=== PATIENT | female | born 1940 | race Caucasian/White ===

== ENCOUNTER 2019-12-28 15:14 | Observation (INO) | payer OTHER ==
[2019-12-28 16:57] LABS: Absolute Lymphocytes (CBC) 2.3 K/uL (0.7-4.9); Basophils % 0.7 % (0-1.3); Hematocrit 37.2 % (36.0-45.0); MPV 8.8 fL (7.6-11.3); RBC Red Blood Cell Count 3.83 M/uL (3.86-4.86)
[2019-12-28 17:00] LABS: Protime INR 0.98
[2019-12-28 17:11] LABS: ALT/SGPT 13 U/L (12-78); AST/SGOT 12 U/L (15-37); Albumin 3.6 g/dL (3.4-5.0); Alkaline Phosphatase 64 U/L (45-117); BUN Blood Urea Nitrogen 12 mg/dL (7-18); Bicarbonate 29 mmol/L (21-32); Bilirubin Direct 0.1 mg/dL (0-0.2); Bilirubin Total 0.4 mg/dL (0.2-1.0); Glucose Level 99 mg/dL (74-106); Magnesium 2.5 mg/dL (1.8-2.4); NT PRO-BNP 178 pg/mL (<450); Potassium 3.8 mmol/L (3.5-5.1); Protein, Total 7.1 g/dL (6.4-8.2); Sodium Level 137 mmol/L (136-145); Troponin (Emerg Dept Use Only) < 0.02 ng/mL (0.0-0.045)
--- NOTE | 2019-12-28 17:30 | RAD REPORT ---
EXAM DESCRIPTION: Rick[place] Single View12/28/2019 5:19 pm CLINICAL HISTORY: Chest pain COMPARISON: none FINDINGS: The lungs appear clear of acute infiltrate. The heart is normal size. Aorta is tortuous/e ctatic IMPRESSION: No acute abnormalities displayed
[2019-12-28] MEDS ORDERED: ASPIRIN 81 MG CHEWABLE TABLET ONE (17:44)
--- NOTE | 2019-12-28 17:45 | ER ---
Nurse's Notes [facility] Name: Elida Yañez Age: 79 yrs Sex: Female : 1940 Arrival Date: 12/28/2019 Time: 15:16 Bed 16 Private MD: Shana Yun C Diagnosis: Chest pain, unspecified;Streptococcal pharyngitis Presentation: 12/27 15:26 Chief complaint: Patient states: Slight cough, low grade fever, and left sided chest ll1 pain since last night. Coronavirus screen: Surgical mask placed on patient. Patient moved to private room, placed in contact and droplet isolation with eye protection until further assessment. Patient reports a cough. Patient denies shortness of breath or difficulty breathing. Patient denies measured and/or subjective temperature greater than 100.4F prior to today's visit. Patient denies travel on a cruise ship or to a country the [facility] currently lists as an affected area. Patient denies contact with known and/or suspected case of COVID-19. Fever 100.1 at home. Ebola Screen: Patient denies travel to an Ebola-affected area in the 21 days before illness onset. Initial Sepsis Screen: Does the patient meet any 2 criteria? No. Patient's initial sepsis screen is negative. Does the patient have a suspected source of infection? No. Patient's initial sepsis screen is negative. Risk Assessment: Do you want to hurt yourself or someone else? Patient reports no desire to harm self or others. Onset of symptoms was December 27, 2019. 15:26 Method Of Arrival: Ambulatory ll1 15:26 Acuity: ELIAS 3 ll1 Historical: - Allergies: 15:29 Codeine; ll1 15:29 Primidone; ll1 - PMHx: 15:29 Hypothyroidism; High Cholesterol; Arthritis; ll1 - Social history:: Smoking status: Patient denies any tobacco usage or history of. Patient/guardian denies using alcohol, street drugs, tobacco products. Screenin:23 Abuse screen: Denies threats or abuse. Nutritional screening: No deficits noted. Tuberculosis screening: No symptoms or risk factors identified. Fall Risk None identified. Assessment: 15:50 General: Appears in no apparent distress. Behavior is calm, cooperative. Pain: Complains of pain in chest Pain does not radiate. Pain currently is 5 out of 10 on a pain scale. Quality of pain is described as aching, Pain began 2-3 days ago. Neuro: Level of Consciousness is awake, alert, Oriented to person, place, time, situation. Cardiovascular: Heart tones S1 S2 present Capillary refill < 3 seconds Patient's skin is warm and dry. Pulses are palpable in right radial artery and left radial artery Chest pain is described as mild, quality is is located in left began 1 day ago. Respiratory: Airway is patent Respiratory effort is even, unlabored, Respiratory pattern is regular, symmetrical, Breath sounds are clear. GI: No signs and/or symptoms were reported involving the gastrointestinal system. : No signs and/or symptoms were reported regarding the genitourinary system. EENT: No signs and/or symptoms were reported regarding the EENT system. Derm: No signs and/or symptoms reported regarding the dermatologic system. 19:30 Reassessment: Attempted to call report to 4th floor , was asked to call back in 30 mins. 19:44 Reassessment: outside lab notified pt to be admitted, spoke with Ramiro. 19:45 Reassessment: Pt given sandwich and chips at this time. 20:26 Reassessment: Attempted to call report to 4th floor, Nurse states that she is still ah busy and will call back. 20:36 Reassessment: Dr Yun in to see Pt at this time. Vital Signs: 15:26 BP 145 / 80; Pulse 81; Resp 18; Temp 99.1; Pulse Ox 98% ; Pain 4/10; ll1 16:55 BP 154 / 88; Pulse 73; Resp 16; Pulse Ox 97% ; ah 17:30 BP 140 / 79; Pulse 76; Resp 16; Pulse Ox 98% ; ah 18:00 BP 154 / 87; Pulse 72; Resp 20; Temp 98.8; Pulse Ox 98% ; ah 18:30 BP 150 / 77; Pulse 73; Resp 21; Pulse Ox 99% ; ah 19:00 BP 128 / 76; Pulse 72; Resp 17; Pulse Ox 96% ; ah 20:00 BP 144 / 78; Pulse 79; Resp 18; Pulse Ox 98% ; ah ED Course: 15:16 Patient arrived in ED. ag5 15:17 Shana Yun MD is Private Physician. ag5 15:28 Triage completed. ll1 15:29 Nick Tadeo PA is PHCP. [facility] 15:29 Lamont Tatum MD is Attending Physician. [facility] 15:29 Arm band placed on Patient placed in an exam room, on a stretcher. ll1 15:33 Cathi Yañez, RN is Primary Nurse. 16:22 One-on-one care X 45 minutes. 16:30 Initial lab(s) drawn, First set of blood cultures drawn EKG done, Flu and/or RSV swab ah sent to lab. Strep swab sent to lab. Inserted saline lock: 20 gauge in left antecubital area, using aseptic technique. 17:20 XRAY Chest (1 view) In Process Unspecified. EDMS 17:44 Shana Yun MD is Hospitalizing Provider. [facility] 19:24 Patient has correct armband on for positive identification. Placed in gown. Bed in low ah position. Call light in reach. Side rails up X2. electronic device monitor on. Pulse ox on. NIBP on. 20:30 No provider procedures requiring assistance completed. Patient admitted, IV remains in ah place. 20:37 Patient maintains SpO2 saturation greater than 95% on room air. Administered Medications: 17:45 Drug: Aspirin Chewable Tablet 324 mg Route: PO; 18:45 Follow up: Response: No adverse reaction 19:00 Drug: Amoxicillin 500 mg Route: PO; 20:00 Follow up: Response: No adverse reaction Outcome: 17:45 Decision to Hospitalize by Provider. [facility] 20:37 Admitted to Tele accompanied by tech, via stretcher, room 415, with chart. 20:37 Condition: stable 20:37 Instructed on the need for admit. 21:34 Patient left the ED. sg Signatures: Dispatcher [employer] EDMS Howie Drake, RN RN Nick Hoffman PA PA jmm Gaskin, Ajare ag5 Cathi Yañez RN RN Jonathan García RN RN ll1
--- NOTE | 2019-12-28 17:45 | EDPHYS ---
Physician Documentation [facility] Name: Elida Yañez Age: 79 yrs Sex: Female : 1940 Arrival Date: 12/28/2019 Time: 15:16 Bed 16 Private MD: Shana Yun C ED Physician Lamont Tatum HPI: 12/27 15:50 This 79 yrs old Female presents to ER via Ambulatory with complaints of Chest jmm Pain, Fever. 15:50 Onset: The symptoms/episode began/occurred last night. Associated signs and symptoms: jmm Pertinent positives: chest pain, cough, fever. This is an 79 year old female with a history of HLP, hypothyroidism that presents to the ED with complaints of chest pain beginning last night along with body aches and low grade fever. Patient states she has had an ongoing chronic cough. Denies recent travel. Denies infectious exposure. . Historical: - Allergies: 15:29 Codeine; ll1 15:29 Primidone; ll1 - PMHx: 15:29 Hypothyroidism; High Cholesterol; Arthritis; ll1 - Social history:: Smoking status: Patient denies any tobacco usage or history of. Patient/guardian denies using alcohol, street drugs, tobacco products. ROS: 15:50 Abdomen/GI: Negative for abdominal pain, nausea, vomiting, diarrhea, and constipation, jmm Back: Negative for injury and pain, Neuro: Negative for headache, weakness, numbness, tingling, and seizure. 15:50 Constitutional: Positive for body aches, chills, fever. 15:50 Cardiovascular: Positive for chest pain. 15:50 Respiratory: Positive for cough. 15:50 All other systems are negative. Exam: 15:50 Constitutional: This is a well developed, well nourished patient who is awake, alert, jmm and in no acute distress. Head/Face: atraumatic. Eyes: EOMI, no conjunctival erythema appreciated ENT: Moist Mucus Membranes Neck: Trachea midline, Supple Chest/axilla: Normal chest wall appearance and motion. 15:50 Back: Normal ROM Skin: General appearance color normal MS/ Extremity: Moves all extremities, no obvious deformities appreciated, no edema noted to the lower extremities Neuro: Awake and alert, normal gait Psych: Behavior is normal, Mood is normal, Patient is cooperative and pleasant 15:50 Cardiovascular: Rate: normal, Rhythm: regular, Pulses: no pulse deficits are appreciated. 15:50 Respiratory: the patient does not display signs of respiratory distress, Respirations: normal, Breath sounds: are clear throughout. 15:50 Abdomen/GI: Inspection: abdomen appears normal, Bowel sounds: normal, Palpation: abdomen is soft and non-tender, in all quadrants. Vital Signs: 15:26 BP 145 / 80; Pulse 81; Resp 18; Temp 99.1; Pulse Ox 98% ; Pain 4/10; ll1 16:55 BP 154 / 88; Pulse 73; Resp 16; Pulse Ox 97% ; ah 17:30 BP 140 / 79; Pulse 76; Resp 16; Pulse Ox 98% ; ah 18:00 BP 154 / 87; Pulse 72; Resp 20; Temp 98.8; Pulse Ox 98% ; ah 18:30 BP 150 / 77; Pulse 73; Resp 21; Pulse Ox 99% ; ah 19:00 BP 128 / 76; Pulse 72; Resp 17; Pulse Ox 96% ; ah 20:00 BP 144 / 78; Pulse 79; Resp 18; Pulse Ox 98% ; ah MDM: 15:47 Patient medically screened. [facility] 17:43 Data reviewed: vital signs, nurses notes. Counseling: I had a detailed discussion with [facility] the patient and/or guardian regarding: the historical points, exam findings, and any diagnostic results supporting the discharge/admit diagnosis, lab results, radiology results, the need for further work-up and treatment in the hospital. ED course: I discussed the patient with Dr. Yun whom accepted the patient for admission. . 12/27 15:30 Order name: Basic Metabolic Panel; Complete Time: 17:15 [facility] 12/27 15:30 Order name: CBC with Diff; Complete Time: 17:15 [facility] 12/27 15:30 Order name: LFT's; Complete Time: 17:15 [facility] 12/27 15:30 Order name: Magnesium; Complete Time: 17:15 [facility] 12/27 15:30 Order name: NT PRO-BNP; Complete Time: 17:15 [facility] 12/27 15:30 Order name: PT-INR; Complete Time: 17:35 [facility] 12/27 15:30 Order name: Troponin (emerg Dept Use Only); Complete Time: 17:15 [facility] 12/27 15:30 Order name: Procalcitonin; Complete Time: 17:39 [facility] 12/27 15:30 Order name: Lactate; Complete Time: 17:15 [facility] 12/27 15:30 Order name: Blood Culture Adult (2) [facility] 12/27 15:47 Order name: Flu; Complete Time: 17:35 [facility] 12/27 15:47 Order name: Strep; Complete Time: 17:35 [facility] 12/27 15:47 Order name: COVID-19; Complete Time: 20:41 [facility] 12/27 15:48 Order name: TSH; Complete Time: 17:35 [facility] 12/27 15:30 Order name: XRAY Chest (1 view); Complete Time: 17:35 [facility] 12/27 15:30 Order name: EKG; Complete Time: 15:30 [facility] 12/27 18:33 Order name: Basic Metabolic Panel EDMS 12/27 18:33 Order name: Basic Metabolic Panel EDMS 12/27 18:33 Order name: Troponin I EDMS 12/27 18:33 Order name: Troponin I EDMS 12/27 18:33 Order name: Troponin I EDMS 12/27 18:34 Order name: Consistent Carb (ADA) 1800 Rc EDMS 12/27 18:34 Order name: EKG Electrocardiogram EDMS 12/27 18:34 Order name: EKG Electrocardiogram EDMS 12/27 18:34 Order name: EKG Electrocardiogram EDMS 12/27 18:34 Order name: EKG Electrocardiogram EDMS / 18:34 Order name: CBC with Automated Diff EDMS / 18:35 Order name: CBC with Automated Diff EDMS 05/ 15:30 Order name: Cardiac monitoring; Complete Time: 17:01 [facility] 12/27 15:30 Order name: EKG - Nurse/Tech; Complete Time: 17:02 [facility] 12/27 15:30 Order name: IV Saline Lock; Complete Time: 17:13 [facility] 12/27 15:30 Order name: Labs collected and sent; Complete Time: 17:14 [facility] 12/27 15:30 Order name: O2 Per Protocol; Complete Time: 17:14 [facility] 12/27 15:30 Order name: O2 Sat Monitoring; Complete Time: 17:14 [facility] 12/27 18:34 Order name: EKG Electrocardiogram EDMS Administered Medications: 17:45 Drug: Aspirin Chewable Tablet 324 mg Route: PO; ah 18:45 Follow up: Response: No adverse reaction 19:00 Drug: Amoxicillin 500 mg Route: PO; 20:00 Follow up: Response: No adverse reaction Disposition: 12/28/19 17:45 Hospitalization ordered by Shana Yun for Observation. Preliminary diagnosis are Chest pain, unspecified, Streptococcal pharyngitis. - Bed requested for Telemetry/MedSurg (observation). - Status is Observation. sg - Condition is Stable. - Problem is new. - Symptoms are unchanged. Addendum: 01/07/2020 12:36 Co-signature as Attending Physician, Lamont Tatum MD Available for consultation p s1 during the ED encounter. . Signatures: Dispatcher [employer] EDMS Bonita Scott Steven, RN RN Nick Hoffman PA PA jmm Singer, Phillip, MD MD [facility] Cathi Yañez, RN RN Jonathan Wren RN RN ll1 Corrections: (The following items were deleted from the chart) 12/27 18:45 17:45 Hospitalization Ordered by A Court TRIVEDI for Observation. Preliminary diagnosis is bd Chest pain, unspecified; Streptococcal pharyngitis. Bed requested for Telemetry/MedSurg (observation). Status is Observation. Condition is Stable. Problem is new. Symptoms are unchanged. [facility] 21:34 18:45 12/28/2019 17:45 Hospitalization Ordered by A Court TRIVEDI for Observation. sg Preliminary diagnosis is Chest pain, unspecified; Streptococcal pharyngitis. Bed requested for Telemetry/MedSurg (observation). Status is Observation. Condition is Stable. Problem is new. Symptoms are unchanged. bd
[2019-12-28] MEDS ORDERED: ONDANSETRON 4 MG/2 ML VIAL IV PRN (18:30)
[2019-12-28] MEDS ORDERED: ACETAMINOPHEN 500 MG TAB PO PRN (18:30)
[2019-12-28] MEDS: AMOXICILLIN TRIHYDR 250 MG CAP PO SCH ×2 (21:00→22:10)
[2019-12-28] MEDS ORDERED: NAPROXEN 250 MG TAB PO ONE (23:16)
[2019-12-28 23:56] VITALS: BMI 28.5
--- NOTE | 2019-12-29 01:10 | HP ---
Date of Admission: 12/28/2019 Chief Complaint: Chest pain, fever, chills. History Of Present Illness: This is an 79-year-old very pleasant female patient who came into emergency room today with complaints of left-sided chest pain in the area below her left breast that started last night and pain has been continuous, but it increases and decreases in severity on its own. Pain does not travel anywhere. No aggravating or relieving factor. No other associated symptoms like diaphoresis or shortness of breath. She does have some low-grade fever with that and chills. Denies any expectoration. No vomiting. No diarrhea. After she came into the emergency room, she was evaluated and she will be admitted to the hospital with these complaints. COVID-19 test was done. Patient's streptococcal screen came back positive. Influenza A and B negative. I saw her in the emergency room. Allergies: CODEINE CAUSING HEADACHE AND PRIMIDONE CAUSING RASH. Medications: List reviewed. At home, prescription medication includes Lexapro, levothyroxine, propranolol, simvastatin, and trazodone. She also takes Tylenol, calcium, and vitamin D supplement. Review of Systems: Constitutional: As mentioned above. Cardiovascular: As mentioned above. All other systems reviewed and negative. Past Medical History: Benign essential tremor, hypothyroidism, hyperlipidemia, osteoarthritis at multiple sites, depression, insomnia, osteopenia. Past Surgical History: Cataract surgery. Family History: Father , had COPD. Mother and had osteoarthritis. Social History: Negative for smoking or alcohol use. Physical Examination: Vital Signs: Blood pressure when she came into ER 145/80, pulse 81, respiratory rate 18, temperature 99.1, oxygen saturation 98%. General: Awake, alert, oriented, not in distress. HEENT: Head atraumatic, normocephalic. Conjunctivae nonerythematous. Sclerae white. Mouth, no thrush or edema noted. Ears/Nose, no mass, lesion, discharge noted. Neck: Supple. No JVD, lymph nodes, bruit, thyromegaly noted. Lungs: Bilateral good equal air entry. Clear to auscultation. No rhonchi. No rales. Heart: Normal heart sounds, no murmur or gallop. Abdomen: Soft, bowel sounds normal. No guarding, rigidity, tenderness, mass, hepatosplenomegaly, distention, or bruit noted. Extremities: No leg edema. No calf tenderness. Skin: No rash, ulcer, cellulitis. Lymphatics: No lymph node enlargement in neck, supraclavicular, infraclavicular region. Neuro: No focal neurological deficit. Chest: Unremarkable. External Genitalia: Deferred. Rectal: Deferred. Laboratory Data: White count 9.4, hemoglobin 12.4, platelets 240. Sodium 137, potassium 3.8, chloride 104, bicarb 29, BUN 12, creatinine 0.94, glucose 99, magnesium 2.5. Liver function tests unremarkable. Troponin less than 0.02. Procalcitonin less than 0.05. TSH 0.964. Lactic acid 0.7. Chest x-ray: No acute cardiopulmonary changes. EKG: Normal sinus rhythm. No acute ST-T changes. COVID-19 test done, result pending. Influenza A and B test negative. Streptococcal screen positive. Impression: 1. Chest pain, rule out myocardial infarction. 2. Rule out coronavirus disease 2019. 3. Acute streptococcal pharyngitis. 4. Benign essential tremor. 5. Hypothyroidism. 6. Hyperlipidemia. 7. Osteoarthritis in multiple sites. 8. Depression. 9. Insomnia. Plan: Admit patient to hospital for further evaluation and management of this problem. Patient is appropriate for observation. We will keep her in the hospital overnight. Rule out COVID-19. Hopefully, result will be available by tomorrow. We will get serial cardiac enzymes. I will see her tomorrow for followup. Depending on her clinical condition, we will decide if we can possibly discharge her to go home. If she goes home before we receive her COVID-19 test results, then she should keep herself in isolation at home until negative result comes back and she was made aware of that. Her chest pain appears to be atypical in nature at this point. We will give antibiotic, amoxicillin for her streptococcal infection. JULIA/MODL Voice ID: [id number] MTDShun
[2019-12-29 03:30] LABS: Absolute Lymphocytes (CBC) 2.6 K/uL (0.7-4.9); Basophils % 0.6 % (0-1.3); Hematocrit 32.5 % (36.0-45.0); Lymphocytes % 31.3 % (15.3-44.8); MPV 8.9 fL (7.6-11.3); RBC Red Blood Cell Count 3.31 M/uL (3.86-4.86)
[2019-12-29] MEDS ORDERED: LEVOTHYROXINE SOD 0.05 MG TABLET PO SCH (06:30)
[2019-12-29] MEDS: AMOXICILLIN TRIHYDR 250 MG CAP PO SCH (08:09)
[2019-12-29 08:17] VITALS: BP 136/68; TEMP 96.9
[2019-12-29 08:29] VITALS: O2SAT 100
[2019-12-29] MEDS ORDERED: ASPIRIN EC 81 MG TAB PO SCH (09:00)
[2019-12-29] MEDS ORDERED: NAPROXEN 250 MG TAB PO SCH (09:00)
[2019-12-29] MEDS ORDERED: ESCITALOPRAM 20 MG TAB PO SCH (09:00)
--- NOTE | 2019-12-29 16:19 | EKG ---
Test Date: 2019-12-28 Test Time: 16:51:32 Seat Cover Installer: BHARATI MEASUREMENT RESULTS: Intervals: Rate: 76 OR: 194 QRSD: 120 QT: 420 QTc: 472 [place]: P: 45 OR: 194 QRS: -25 T: 96 INTERPRETIVE STATEMENTS: Normal sinus rhythm Incomplete left bundle branch block ST & T wave abnormality, consider lateral ischemia Abnormal ECG No previous ECG available for comparison Electronically Signed On 12-29-19 16:18:05 CDT by Pa Medina
== END 2019-12-29 10:30 | disposition home or self-care (01) ==
LOC: ER 15:14 → ERHOLD 18:29 → 4TH 21:13
PROVIDERS: ADMIT Internal Medicine; ATTEND Internal Medicine
DX: R07.9 Chest pain, unspecified (principal); Z20.828 Contact with and (suspected) exposure to other viral communicable diseases; J02.0 Streptococcal pharyngitis; R50.9 Fever, unspecified; E03.9 Hypothyroidism, unspecified; E78.5 Hyperlipidemia, unspecified; M15.9 Polyosteoarthritis, unspecified; F32.9 Major depressive disorder, single episode, unspecified; G47.00 Insomnia, unspecified; M85.80 Other specified disorders of bone density and structure, unspecified site; G25.0 Essential tremor; Z88.6 Allergy status to analgesic agent; Z88.8 Allergy status to other drugs, medicaments and biological substances
CPT/HCPCS: 93005; 87040 ×2; 85025 ×2; 80048 ×2; 36415; 83735; 85610; 80076; 87081; 83605; 84443; 84484 ×3; 84145; 83880; 87804 ×2; 71045; 99285; U0002; G0378 ×3

== ENCOUNTER 2021-01-26 13:07 | Inpatient (IN) | payer OTHER ==
--- OUTSIDE RECORDS SUMMARY | 2021-01-26 15:07 | XMS REPORT | Continuity of Care Document ---
:1940 Author Organization [facility] t Address [address] [place] [address] Dr. Crabtree. [address] [place] [address] Care Team Providers Name Role Phone Hemalatha Billings Attending Clinician Problems This patient has no known problems. Allergies, Adverse Reactions, Alerts This patient has no known allergies or adverse reactions. Medications This patient has no known medications. Procedures This patient has no known procedures. Encounters Start End Encounter Admission Attending Care Care Encounter Source Date/Time Date/Time Type Type Clinicians Facility Department ID 2020-02-04 2020-02-04 Emergency Cassandra Gomes [facility] 1.2. [id number] 20:30:13 22:15:00 Cassandra Gomes [id number] [place] [id number] [place] [phone] [id number] Results This patient has no known results.
[2021-01-26] MEDS ORDERED: ACETAMINOPHEN 500 MG TAB PO PRN (16:10)
[2021-01-26] MEDS ORDERED: BISACODYL 10 MG RECTAL SUPP PR PRN (16:12)
[2021-01-26] MEDS ORDERED: DOCUSATE NA/SENNA CONC 1 TAB PO PRN (16:13)
[2021-01-26] MEDS ORDERED: methocarbamoL 500 MG TAB PO PRN (16:19)
[2021-01-26] MEDS: POLYETHYL GLY 3350 17 GM/DOSE PO SCH (20:39)
[2021-01-26] MEDS: NAPROXEN 250 MG TAB PO SCH (20:39)
[2021-01-26] MEDS: ATORVASTATIN 10 MG TAB PO SCH (20:40)
[2021-01-26] MEDS: levETIRAcetam 500 MG TAB PO SCH (20:40)
[2021-01-26] MEDS: MEMANTINE HCL 10 MG TABLET PO SCH (20:40)
[2021-01-26] MEDS: GABAPENTIN 300 MG CAP PO SCH (20:40)
[2021-01-26] MEDS ORDERED: ATORVASTATIN 10 MG TAB PO SCH (21:00)
[2021-01-27 05:58] LABS: Urine Appearance CLEAR (Clear); Urine Bilirubin NEGATIVE (Negative); Urine Blood NEGATIVE (Negative); Urine Color YELLOW (Yellow); Urine Glucose NEGATIVE (Negative); Urine Protein NEGATIVE (Negative); Urine Specific Gravity 1.015 (1.005-1.030); Urine pH 5.5 (5.0-7.0)
[2021-01-27 05:59] LABS: Urine Microscopic Reflex NO UMIC
[2021-01-27 06:37] LABS: Absolute Lymphocytes (CBC) 1.2 K/uL (0.7-4.9); Basophils % 0.9 % (0-1.3); Hematocrit 27.7 % (36.0-45.0); Lymphocytes % 21.4 % (15.3-44.8); MPV 8.6 fL (7.6-11.3); RBC Red Blood Cell Count 2.81 M/uL (3.86-4.86)
[2021-01-27] MEDS: LEVOTHYROXINE SOD 0.05 MG TABLET PO SCH (06:48)
[2021-01-27 06:57] LABS: Albumin 2.9 g/dL (3.4-5.0); Magnesium 2.4 mg/dL (1.8-2.4); Prealbumin 15.1 mg/dL (20-40)
[2021-01-27] MEDS ORDERED: ENOXAPARIN 30 MG/0.3 ML SQ SCH (08:00)
[2021-01-27] MEDS ORDERED: ASPIRIN 325 MG TAB PO SCH (08:00)
[2021-01-27] MEDS: LIDOCAINE 4% PATCH TOP SCH ×2 (08:00→08:43)
[2021-01-27] MEDS: POLYETHYL GLY 3350 17 GM/DOSE PO SCH ×2 (08:00→20:00)
[2021-01-27] MEDS: ASPIRIN 81 MG CHEWABLE TABLET PO SCH (08:44)
[2021-01-27] MEDS: NAPROXEN 250 MG TAB PO SCH (08:44)
[2021-01-27] MEDS: VITAMIN D 5,000 UNIT CAP PO SCH (08:44)
[2021-01-27] MEDS: GABAPENTIN 300 MG CAP PO SCH ×3 (08:44→21:02)
[2021-01-27] MEDS: levETIRAcetam 500 MG TAB PO SCH ×2 (08:44→21:02)
[2021-01-27] MEDS: ESCITALOPRAM 20 MG TAB PO SCH (08:44)
--- NOTE | 2021-01-27 12:50 | HP ---
Date of Admission: 01/27/2021 Chief Complaint: Leg pain. History Of Present Illness: This is an 80-year-old very pleasant female patient, who fell down at [facility]. The patient says that while she walking on a hard floor, she felt like her foot kind of got stuck on the floor and she lost her balance and fell down. The patient was life flighted to [place] to [facility] and after several days in the hospital, she was sent to our rehab floor yesterday for inpatient rehab care. The patient had surgery for left patellar fracture. I have reviewed the available record from [place] and her workup in [place] revealed that the patient had a small thin right-sided parafalcine subdural hematoma and it did not require any surgical intervention. She also was diagnosed as having fracture of the sinus and nasal bones and she had some teeth extraction done in [place]. She also was diagnosed as having left comminuted patella fracture for which she had surgery and she had a mild compression fracture approximately 10% involving T1 and there was osteophyte fracture at the base of T1 and longitudinal ligament injury of C7-T1. The patient has a hard cervical collar in place and brace over left lower extremity. She denies any constipation problem. Medications: List reviewed. Review of Systems: Musculoskeletal: As mentioned above. All other systems reviewed and negative. Allergies: SHE IS ALLERGIC TO CODEINE CAUSING HEADACHE AND PRIMIDONE CAUSING RASH. Past Medical History: Benign essential tremor, hypothyroidism, hyperlipidemia, osteoarthritis at multiple sites, depression, insomnia, and osteopenia. Past Surgical History: Cataract surgery and recent surgery for left patellar fracture. Family History: Father , had COPD. Mother , had osteoarthritis. Social History: Negative for smoking and alcohol use. Physical Examination: Vital Signs: Last vital signs; temperature 98.3, pulse 105, respiratory rate 16, blood pressure 115/58, and oxygen saturation 96%. Height 5 feet 7 inches, weight 188 pounds. General: Awake, alert, oriented, not in distress. HEENT: The patient has some contusion around her lips. Neck: The patient has a hard cervical collar in place. Lungs: Bilateral good equal air entry. Clear to auscultation. No rhonchi. No rales. Heart: Normal heart sounds, no murmur or gallop. Abdomen: Soft, bowel sounds normal. No guarding, rigidity, tenderness, mass, hepatosplenomegaly, distention, or bruit noted. Extremities: The patient has a brace present over left lower extremity and has grade 1 edema of left lower extremity. Skin: No rash, ulcer, cellulitis. Lymphatics: No lymph node enlargement in neck, supraclavicular, infraclavicular region. Neuro: No focal neurological deficit. Chest: Unremarkable. External Genitalia: Deferred. Rectal: Deferred. Laboratory Data: Urinalysis was normal. COVID-19 test negative. White count 5.7, hemoglobin 9.6, platelets 203. Sodium 141, potassium 4, chloride 107, bicarb 30, BUN 24, creatinine 0.93, glucose 91. Magnesium 2.4, albumin level 2.9, pre-albumin level 15.1. Impression: 1. Left patellar fracture, status post surgery. 2. Compression fracture, T1 spine. 3. Longitudinal ligament injury, C7-T1. 4. Fracture of nasal bone and maxillary sinus. 5. Anemia. 6. Malnutrition. 7. Benign essential tremor. 8. Hypothyroidism. 9. Hyperlipidemia. 10. Leg edema. 11. Osteoarthritis at multiple sites. 12. Depression. 13. Insomnia. Plan: We will go ahead and admit the patient to rehab floor for further inpatient rehab therapy. Dr. Beckwith from rehab floor will be consulted to manage the patient's therapy part. We will continue current medical management including her DVT prophylaxis. Currently, she is on Lovenox, we will continue that. We will use stool softener and iron supplement per order. Details and plan of treatment discussed with her and I will see her tomorrow for follow up visit. JULIA/YONG Voice ID: [id number] MTDD
[2021-01-27] MEDS: CHLORHEXIDINE 0.12% 473ML BOT MM SCH ×2 (14:36→21:02)
--- NOTE | 2021-01-27 18:31 | R.PREADM ---
PRE-ADMISSION SCREENING FORM SCREENING DATE AND TIME 01/25/2021 14:58 (CDT) ANTICIPATED REHAB ADMISSION DATE 01/27/2021 REFERRING FACILITY [facility] REFERRAL DATE AND TIME 01/25/2021 15:00 (CDT) REFERRAL ROOM# [id number] ACUTE ADMIT DATE 01/21/2021 Previous Rehabilitation(s): No. 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 HILLMAN REHAB FACILITY [facility] CLINICAL LIAISON Jv Meraz PHYSICIAN REVIEWER Dr. Kyler Beckwith M.D. MR# [id number] NAME ELIDA YAÑEZ ADDRESS [address] [place] [address] PHONE [facility] [id number] DATE OF 1940 AGE 80 SSN# [id number] GENDER female MARITAL STATUS RACE white PREF. LANGUAGE (IF NON-UZBEK) Persian ADMIT FROM 02 - [facility] PRE-HOSPITAL LIVING SETTING 01 - Home (private home/apt. board/care, assisted living, mcc, transitional living) HOME TYPE AND DETAILS Type of home: single family house # of levels in the residence: 1 # of steps within the residence: 0 # of steps to enter the residence: 2 PRE-HOSPITAL LIVING WITH Family/Relatives FAMILY SUPPORT Yes PRIMARY FAMILY CONTACT NAME KATHLEEN YAÑEZ PRIMARY FAMILY CONTACT PHONE PRIMARY FAMILY CONTACT RELATIONSHIP Daughter PHONE PRIMARY FAMILY CONTACT ON ADM.? no IS PRIMARY FAMILY CONTACT AUTH. REP.? no 1ST EMERGENCY CONTACT KATHLEEN YAÑEZ 1ST CONTACT PHONE 1ST CONTACT RELATIONSHIP Daughter PHONE 1ST CONTACT ON ADM. no IS 1ST CONTACT AUTH. REP.? no PHONE 2ND CONTACT ON ADM.? no PATIENT EMPLOYMENT STATUS Retired (for age) PATIENT EMPLOYER No Employer PAYOR INFORMATION: 1ST PAYOR NAME MEDICARE 1ST PAYOR PHONE 1ST PAYOR INJURY/ILLNESS DUE TO ACCIDENT? No ANOTHER REPUBLICAN RESPONSIBLE? No PRIMARY REHAB/ACUTE DIAGNOSIS: Traumatic subarachnoid hemorrhage without loss of consciousness, initial encounter (S06.6X0A) ONSET DATE 01/25/2021 REHAB IMPAIRMENT CATEGORY (LING): 02 Traumatic brain injury (TBI) MEETS 60% rule PRIMARY DIAGNOSIS-RELATED SURGERIES: LEFT OPEN REDUCTION INTERNAL FIXATION OF LEFT FEMUR SUMMARY OF ACUTE HOSPITALIZATION: Pt. is a 80 yo Right-handed white female. On 01/25/2021 she was admitted to [facility] with diagnosis Traumatic subarachnoid hemorrhage w ithout loss of consciousness, initial encounter (S06.6X0A). Her impairment category is Brain Dysfunction 02 - Open Injury (02.). Pre-morbidly, Pt. was independent/mod-I in Locomotion, Balance, Safety Awareness, Transfers Control, Social Cognition, and Sphincter Control; and she had good Endurance and Self-Care. Currently, she has deficits of Locomotion, Balance, Sphincter Control, Transfers Control, and Enduran ce. Pt. is now referred to [facility] for acute in-patient rehabilitation in order to maximize patient's functional independence in activities of daily living, strength, ROM, and mobi lity. Patient has realistic goal of being discharged at assistance level 7-Ind to reside at Home with Fami ly/Relatives. Elida Yañez is a 80 -year old -old female that lives indepently at home with her with family help when needed. She presented as a trauma consult s/p mechanical fall from standing during graduation and fell and hit her face. Complaining of facail pain and right knee pain. She found to have right patellar fracture and alveolar ridge fracture with multiple maxillary facial fractures. She has a history of hypothroidism. Shes in ar ed to get back to her normal independency. She has always done all of her own house keeping. She has been working hard with hospital PT/ OT. The patient would most definitely benefit from acute inpatient rehab, to get back stronger for her independency at home. Her stay would for acute inpatient rehab for approximately 7-10 days in order to return to her prior level of care. She is now being transferred to [facility] Inpatient rehabilitation and is medically stable with relatively stable labs. She is now medically stable but in need of 24 hour nursing, doctor supervision and oversight while receiving expected to participate in 3 hours of therapy a day/15 hours per week and receive care with intensive interdisciplinary approach. COVID-19 screening performed; spoke with patient via phone. Patient denies new onset of fever, cough, difficulty breathing, sore throat, body aches and non-allergy nasal congestion in the past 24 hours. Patient denies travel outside of [place] in the past 14 days. Patient denies any contact with someone who has a confirmed diagnosis of or is under investigation for COVID-19 in the past 14 days. Patient has been tested negative for COVID- 19. PAST MEDICAL HISTORY BENIGN ESSENTIAL HYPOTHYROIDISM MEMORY ISSUES HYPERCHOLESTEROLEMIA PAST SURGICAL HISTORY: BILATERAL CATARACT SURGERY MEDICATION ALLERGIES: No Known Drug Allergies (NKDA) ENVIRONMENTAL ALLERGIES: - Substance Allergies None Known - Other Allergies None Known CODE STATUS: Full code WEIGHT/HEIGHT/BMI: WEIGHT 180 lbs BMI N/A DIET: - Diet Type Regular - Diet - Solid Texture Regular - Diet - Liquid Texture Regular - Tube Feed N/A REVIEW OF SYSTEMS: - Gen Alert and awake Lying in bed No apparent distress Oriented to: person, time, and place - Vital Signs Temperature: 98.1 F SBP/DBP: 133/65 Pulse: 75 Resp: 19 Vital signs stable, afebrile - CVS RRR VITAL SIGNS Temperature: 98.1 F SBP/DBP: 133/65 Pulse: 75 Resp: 19 Vital signs stable, afebrile MEDICATIONS/TREATMENT: Other- See attached MAR (Medication Administration Record). CURRENT SPHINCTER CONTROL: Pre-hospital bladder status: unspecified # of bladder accidents in the last 7 days prior to screenin Pre-hospital bowel status: unspecified # of bowel accidents in the last 7 days prior to screenin Last Bowel Movement Date: 01/25/2021 CURRENT LOCOMOTION STATUS: distance walked 5 feet WITH WALKER DETAILED CURRENT FUNCTIONAL STATUS: - Bladder accident frequency: 7-Ind - No accidents in the past 7 days - Bowel accident frequency: 7-Ind - No accidents in the past 7 days - Walking score based on distance walked: 0(N/A) score based on distance walked: 1(<=50ft) - Wheelchair score based on distance traveled: 0(N/A) QI SCORES: - Self-Care A. Eating 03-Partial/moderate assistance B. Oral hygiene 03-Partial/moderate assistance C. Toileting hygiene 03-Partial/moderate assistance E. Shower/bathe self 03-Partial/moderate assistance F. Upper body dressing 03-Partial/moderate assistance G. Lower body dressing 03-Partial/moderate assistance H. Putting on/taking off footwear 03-Partial/moderate assistance - Mobility A. Roll left and right 03-Partial/moderate assistance B. Sit to lying 03-Partial/moderate assistance C. Lying to sitting on side of bed 03-Partial/moderate assistance D. Sit to stand 03-Partial/moderate assistance E. Chair/jhw-bs-oqonp transfer 03-Partial/moderate assistance F. Toilet transfer 03-Partial/moderate assistance G. Car transfer 88-Not attempted due to medical condition or safety concerns I. Walk 10 feet 88-Not attempted due to medical condition or safety concerns J. Walk 50 feet with two turns 88-Not attempted due to medical condition or safety concerns K. Walk 150 feet 88-Not attempted due to medical condition or safety concerns L. Walking 10 feet on uneven surfaces 88-Not attempted due to medical condition or safety concerns M. 1 step (curb) 88-Not attempted due to medical condition or safety concerns N. 4 steps 88-Not attempted due to medical condition or safety concerns O. 12 steps 88-Not attempted due to medical condition or safety concerns P. Picking up object 88-Not attempted due to medical condition or safety concerns R. Wheel 50 feet with two turns 88-Not attempted due to medical condition or safety concerns S. Wheel 150 feet - Bladder and Bowel Bladder continence Bowel continence - Endurance Good - Balance Fair - Safety Awareness Good CURRENT FUNC. DEFICITS: Self-Care, Mobility, and Balance CURRENT / PREVIOUS ASSISTIVE DEVICES: 3-in-1 Commode Rolling Walker HISTORY OF FALLS. HAS THE PATIENT HAD TWO OR MORE FALLS IN THE PAST YEAR OR ANY FALL WITH INJURY IN T HE PAST YEAR?: No PRIOR SURGERY. DID THE PATIENT HAVE MAJOR SURGERY DURING THE 100 DAYS PRIOR TO ADMISSION?: No THERAPY NOTES FROM ACUTE CARE: Attached. SPECIAL NEEDS: - Safety Concerns Skin breakdown precautions needed due to skin breakdown risk PRECAUTIONS: - Fall Precaution 1 to 1 supervision PATIENT NEEDS ACTIVE AND ONGOING THERAPEUTIC INTERVENTION OF MULTIPLE THERAPY DISCIPLINES, INCLUDING: - Occupational Therapy Cognitive Retraining. Visual Perceptual Training. - Dietary and Nutrition Adequate Nutrition. Nutritional Education. Nutritional Supplements. - Speech Therapy Augmentative Communication Equipment. PATIENT NEEDS CLOSE MEDICAL SUPERVISION BY A REHABILITATION PHYSICIAN FOR: Coordination of Treatment Team PATIENT REQUIRES 24X7 REHAB NURSING FOR MEDICAL AND FUNCTIONAL MGT. OF THE FOLLOWING DEFICITS: Disease Management Medication Management Patient/Family Education Providing Safe Environment PATIENT REQUIRES INTENSIVE, COORDINATED INTERDISCIPLINARY APPROACH TO REHAB: Arranging Home Equipment/Services Discharge Planning Family Intervention/Training Italian Teacher/Case Management PATIENT REHAB POTENTIAL: Ana YAÑEZ is able and expected to receive 3 hours of individualized therapy daily on at least 5 of ev ju 7 days Ana YAÑEZ's prognosis for significant practical improvement within a reasonable period of time appear s Good Expected level of measurable improvement will be of a practical value to Ana YAÑEZ's functional capac ity or adaptations to impairments Has a viable Discharge Plan Medically appropriate; condition is sufficiently stable to participate in intensive rehab program DISCHARGE PLAN: - Estimated Length of Stay (days) 17. - Consensus on plan Discharge plan has been discussed with primary caregiver. Patient/Family is in agreement with the za n. Primary caregiver is in agreement with the plan. - Patient/Family Goals Return home independently. - Planned Living Setting Upon Discharge Home, to live with Family/Relatives. Transitional Living. RECOMMENDED CARE LEVEL: IRF RECOMMENDATION DETAILS: Recommended Admission to Comprehensive Rehabilitation Program to Increase Functional [place] SCREENER'S COMPLETENESS CONFIRMATION: - Screening Confirmation The patient data collection on this preadmission screening form is finished PHYSICIANS REVIEW AND ADMISSION DETERMINATION Admit - Based on my review of the Pre-Admission Screening results, in my medical judgment and experie nce, I concur with the findings and recommend admission to [facility], as this patient requires an IRF level of care. SIGNATURE PANEL: Flatbed Press Operator - [electronically] signed by Jv Meraz on 01/26/2021 at 10:05 (CDT) Flatbed Press Operator - [electronically] signed by Alen Bello PT on 01/26/2021 at 10:26 (CDT) Physician Reviewer - [electronically] signed by Dr. Kyler Beckwith M.D. on 01/27/2021 at 18:30 (CDT )
--- NOTE | 2021-01-27 18:39 | R.HP ---
HISTORY AND PHYSICAL FACILITY: [facility] ENCOUNTER DATE AND TIME: 01/27/2021 18:31 (CDT) MR#: [id number] NAME ELIDA YAÑEZ ADDRESS: [address] [place] [address] CITY: [place] ZIP [address] PHONE: DATE OF : 1940 AGE: 80 SSN# [id number] GENDER: Female MARITAL STATUS RACE White PRE-HOSPITAL LIVING SETTING 01 - Home (private home/apt. board/care, assisted living, halfway, transitional living) PRE-HOSPITAL LIVING WITH Family/Relatives ENCOUNTER PHYSICIAN: Dr. Kyler Beckwith M.D. REFERRING DOCTOR: MICHAEL HOFFMANN MD DATE OF ADMISSION: 01/26/2021 15:05 (CDT) REFERRING FACILITY [facility] PRIMARY CARE PHYSICIAN Dr. HILLMAN HOME TYPE AND DETAILS: Type of home: single family house # of levels in the residence: 1 # of steps within the residence: 0 # of steps to enter the residence: 2 ONSET DATE: 01/25/2021 PRIMARY DIAGNOSIS-RELATED SURGERIES: LEFT OPEN REDUCTION INTERNAL FIXATION OF LEFT FEMUR HISTORY OF PRESENT ILLNESS (HPI): Pt. is a 80 yo Right-handed white female. On 01/25/2021 she was admitted to [facility] with diagnosis Traumatic subarachnoid hemorrhage w ithout loss of consciousness, initial encounter (S06.6X0A). Her impairment category is Brain Dysfunction 02 - Open Injury (02.21). Pre-morbidly, Pt. was independent/mod-I in Locomotion, Balance, Safety Awareness, Transfers Control, Social Cognition, and Sphincter Control; and she had good Endurance and Self-Care. Currently, she has deficits of Locomotion, Balance, Sphincter Control, Transfers Control, and Enduran ce. Pt. is now referred to [facility] for acute in-patient rehabilitation in order to maximize patient's functional independence in activities of daily living, strength, ROM, and mobi lity. Patient has realistic goal of being discharged at assistance level 7-Ind to reside at Home with Fami ly/Relatives. Elida Yañez is a 80 -year old -old female that lives indepently at home with her with family help when needed. She presented as a trauma consult s/p mechanical fall from standing during graduation and fell and hit her face. Complaining of facail pain and right knee pain. She found to have right patellar fracture and alveolar ridge fracture with multiple maxillary facial fractures. She has a history of hypothroidism. Shes in wi ed to get back to her normal independency. She has always done all of her own house keeping. She has been working hard with hospital PT/ OT. The patient would most definitely benefit from acute inpatient rehab, to get back stronger for her independency at home. Her stay would for acute inpatient rehab for approximately 7-10 days in order to return to her prior level of care. She is now being transferred to [facility] Inpatient rehabilitation and is medically stable with relatively stable labs. She is now medically stable but in need of 24 hour nursing, doctor supervision and oversight while receiving expected to participate in 3 hours of therapy a day/15 hours per week and receive care with intensive interdisciplinary approach. COVID-19 screening performed; spoke with patient via phone. Patient denies new onset of fever, cough, difficulty breathing, sore throat, body aches and non-allergy nasal congestion in the past 24 hours. Patient denies travel outside of [place] in the past 14 days. Patient denies any contact with someone who has a confirmed diagnosis of or is under investigation for COVID-19 in the past 14 days. Patient has been tested negative for COVID- 19. MEDICATION ALLERGIES: No Known Drug Allergies (NKDA) ENVIRONMENTAL ALLERGIES: - Substance Allergies None Known - Other Allergies None Known PAST MEDICAL HISTORY: BENIGN ESSENTIAL HYPOTHYROIDISM MEMORY ISSUES HYPERCHOLESTEROLEMIA PAST SURGICAL HISTORY: BILATERAL CATARACT SURGERY SOCIAL HISTORY: - Home Living Family/Relatives REVIEW OF SYSTEMS: - Gen No Chills Fatigue No Fever - Eyes No Double Vision No itchiness - ENMT No Difficulty Swallowing - CVS Chest Discomfort No Chest Pain Fatigue No Weight Gain - Resp No Cough No Shortness of Breath - GI Continent No Abdominal Pain No Constipation No Diarrhea - Continent No Kidney Pain No Painful Urination No Urinary Urgency - MSK No Joint Pain No Muscle Cramps Stiffness - Skin No Itching No Rash No Suspicious Lesions - Neuro Coordination Difficulty No Difficulty with Concentration No Memory Loss No Seizures Weakness - Psych No Anxiety No Depression No HIV Exposure No Persistent Infections No Seasonal Allergies - Endo No Cold/Heat Intolerance No Excessive Hunger No Excessive Thirst No Excessive Urination PHYSICAL EXAM - Gen Alert and awake Lying in bed No apparent distress Oriented to: person, time, and place - Skin Surgical site on left thigh shows good hemostasis. Mild perioral hyperemia and 4 upper front teeth are missing. - Eyes No abnormalities - ENMT No abnormalities - Neck [place] cervical collar is in place - CVS RRR - Chest No abnormalities - Abd + bowel sounds - GI Soft No abnormalities - No abnormalities - Ext Mild left lower extremity edema with left knee brace in place. - MSK 4+/5 weakness in left lower extremity - Neuro 4/5 strength left lower extremity. - Psych No abnormalities VITAL SIGNS Temperature: 98.1 F SBP/DBP: 119/57 Pulse: 84 Resp: 16 NURSING: - Shower allowing shower - Bladder care per protocol - Skin care per protocol PRECAUTIONS: - Fall Precaution 1 to 1 supervision ACTIVITIES OOB only with supervision QI SCORES: - Self-Care A. Eating 03-Partial/moderate assistance B. Oral hygiene 03-Partial/moderate assistance C. Toileting hygiene 03-Partial/moderate assistance E. Shower/bathe self 03-Partial/moderate assistance F. Upper body dressing 03-Partial/moderate assistance G. Lower body dressing 03-Partial/moderate assistance H. Putting on/taking off footwear 03-Partial/moderate assistance - Mobility A. Roll left and right 03-Partial/moderate assistance B. Sit to lying 03-Partial/moderate assistance C. Lying to sitting on side of bed 03-Partial/moderate assistance D. Sit to stand 03-Partial/moderate assistance E. Chair/zha-ym-abtfx transfer 03-Partial/moderate assistance F. Toilet transfer 03-Partial/moderate assistance G. Car transfer 88-Not attempted due to medical condition or safety concerns I. Walk 10 feet 88-Not attempted due to medical condition or safety concerns J. Walk 50 feet with two turns 88-Not attempted due to medical condition or safety concerns K. Walk 150 feet 88-Not attempted due to medical condition or safety concerns L. Walking 10 feet on uneven surfaces 88-Not attempted due to medical condition or safety concerns M. 1 step (curb) 88-Not attempted due to medical condition or safety concerns N. 4 steps 88-Not attempted due to medical condition or safety concerns O. 12 steps 88-Not attempted due to medical condition or safety concerns P. Picking up object 88-Not attempted due to medical condition or safety concerns R. Wheel 50 feet with two turns 88-Not attempted due to medical condition or safety concerns S. Wheel 150 feet - Bladder and Bowel Bladder continence Bowel continence - Endurance Good - Balance Fair - Safety Awareness Good CURRENT FUNC. DEFICITS: Self-Care, Mobility, and Balance MEDICATIONS: - Other See attached MAR (Medication Administration Record) ASSESSMENT: Pt. is a 80 yo Right-handed white female.On 01/25/2021 she was admitted to [facility] with diag nosis Traumatic subarachnoid hemorrhage without loss of consciousness, initial encounter (S06.6X0A).H er impairment category is Brain Dysfunction 02 - Open Injury (10.15).Pre-morbidly, Pt. was independe nt/mod-I in Locomotion, Balance, Safety Awareness, Transfers Control, Social Cognition, and Sphincter Control; and she had good Endurance and Self-Care.Currently, she has deficits of Locomotion, Balance , Sphincter Control, Transfers Control, and Endurance.Pt. is now referred to [facility] for acute in-patient rehabilitation in order to maximize patient's functional independence in activities of daily living, strength, ROM, and mobility.- Rehab Goal Patient has realistic goal of being discharged at assistance level 7-Ind to reside at Home with Fami ly/Relatives. Elida Yañez is a 80 -year old -old female that lives indepently at home with her with family help when needed. She presented as a trauma consult s/p mechanical fall from standing during graduation and fell and hit her face. Complaining of facail pain and right knee pain. She found to have right patellar fracture and alveolar ridge fracture with multiple maxillary facial fractures. She has a history of hypothroidism. Shes in wi ed to get back to her normal independency. She has always done all of her own house keeping. She has been working hard with hospital PT/ OT. The patient would most definitely benefit from acute inpatient rehab, to get back stronger for her independency at home. Her stay would for acute inpatient rehab for approximately 7-10 days in order to return to her prior level of care. She is now being transferred to [facility] Inpatient rehabilitation and is medically stable with relatively stable labs. She is now medically stable but in need of 24 hour nursing, doctor supervision and oversight while receiving expected to participate in 3 hours of therapy a day/15 hours per week and receive care with intensive interdisciplinary approach. COVID-19 screening performed; spoke with patient via phone. Patient denies new onset of fever, cough, difficulty breathing, sore throat, body aches and non-allergy nasal congestion in the past 24 hours. Patient denies travel outside of [place] in the past 14 days. Patient denies any contact with someone who has a confirmed diagnosis of or is under investigation for COVID-19 in the past 14 days. Patient has been tested negative for COVID- 19.REHAB PLAN: - Physical Therapy Gait dysfunction - to improve, our physical therapists will perform initial evaluation of pt's status upon admission and devise an individualized program for Gait Training, and Wheel Chair mobility Inability to transfer - to improve, our physical therapists will perform initial evaluation of pt's s tatus upon admission and devise an individualized program for Bed mobility Need for home safety evaluation - to improve, our physical therapists will perform initial evaluation of pt's status upon admission and devise an individualized program for Home Evaluation Need in caregiver upon discharge - to improve, our physical therapists will perform initial evaluatio n of pt's status upon admission and devise an individualized program for Caregiver Training Edema - to improve, our physical therapists will perform initial evaluation of pt's status upon admi ssion and devise an individualized program for Elevation Training, and Lymphedema Therapy New precaution - to improve, our physical therapists will perform initial evaluation of pt's status u otf admission and devise an individualized program for Patient precaution education Poor balance - to improve, our physical therapists will perform initial evaluation of pt's status upo n admission and devise an individualized program for Balance Training Poor endurance - to improve, our physical therapists will perform initial evaluation of pt's status u otf admission and devise an individualized program for Endurance Training Achieving independence - to improve, our physical therapists will perform initial evaluation of pt's status upon admission and devise an individualized program for Community Reintegration Activities - Occupational Therapy Need for urgent care nurse practitioner - to improve, our occupation therapists will perform initial evaluation of pt's s tatus upon admission and devise an individualized program for Caregiver Training MEDICAL PLAN: - Diet Type Start Regular - Diet - Liquid Texture Start Regular - Tube Feed Start N/A - Bladder care per protocol - Fall Precaution 1 to 1 supervision - Skin care per protocol - Other See attached MAR (Medication Administration Record) - Diet - Solid Texture Regular - Shower shower DISCHARGE PLAN: - Estimated Length of Stay (days) 17. - Consensus on plan Discharge plan has been discussed with primary caregiver. Patient/Family is in agreement with the za n. Primary caregiver is in agreement with the plan. - Patient/Family Goals Return home independently. - Planned Living Setting Upon Discharge Home, to live with Family/Relatives. Transitional Living. SIGNATURE PANEL: (CDT)
--- NOTE | 2021-01-27 18:41 | PAPE ---
POST ADMISSION PHYSICIAN EVALUATION PATIENT: [facility] MR# [id number] REFERRING DOCTOR MICHAEL HOFFMANN MD PRIMARY CARE PHYSICIAN Dr. HILLMAN EVALUATION DATE AND TIME 01/27/2021 18:39 (CDT) NAME GUERRERO KEARNEY DATE OF 1940 AGE 80 PHONE SSN# [id number] GENDER female EVALUATING PHYSICIAN Dr. Kyler Beckwith M.D. ADMISSION DIAGNOSIS: Traumatic subarachnoid hemorrhage without loss of consciousness, initial encounter (S06.6X0A) ONSET DATE 01/25/2021 POST-ADMISSION FUNCTIONAL/MEDICAL STATUS: - Bladder Same accident frequency: 7-Ind - No accidents in the past 7 days - Bowel Same accident frequency: 7-Ind - No accidents in the past 7 days - Walking Same score based on distance walked: 0(N/A) Same score based on distance walked: 1(<=50ft) - Wheelchair Same score based on distance traveled: 0(N/A) STATUS CHANGE EVALUATION: No change in Functional or Medical Status is identified compared with Pre-Admission screening. PATIENT NEEDS CLOSE MEDICAL SUPERVISION BY A REHABILITATION PHYSICIAN FOR: Coordination of Treatment Team PATIENT REQUIRES 24X7 REHAB NURSING FOR MEDICAL AND FUNCTIONAL MGT. OF THE FOLLOWING DEFICITS: Disease Management Medication Management Patient/Family Education Providing Safe Environment PATIENT REQUIRES INTENSIVE, COORDINATED INTERDISCIPLINARY APPROACH TO REHAB: Arranging Home Equipment/Services Discharge Planning Family Intervention/Training Bingo Usher/Case Management LIST OF IDENTIFIED AND POTENTIAL PROBLEMS: Alteration in leisure activities Bladder, Incontinence Bowel, Incontinence Infection, Actual or Potential Mobility Impaired Pain, Alteration in Comfort Self Care Deficit Skin Integrity, Actual or Potential Urinary Tract Infection (UTI), Actual or Potential PATIENT COULD BE AT RISK FOR COMPLICATIONS FROM ADVERSE MEDICAL CONDITIONS DUE TO HIS/HER COMORBIDITI ES AND THE RIGORS OF THE INTENSIVE REHABILLITATION PROGRAM. METHODS OR INTERVENTIONS TO AVOID COMPLIC ATIONS INCLUDE: - Infection Clinical staff to assess and manage the signs and symptoms of infection including fever, redness, war mth, etc. - Urinary Tract Infection - Falls Patient will be evaluated for Fall Precautions and will be placed on Fall Precautions as indicated pe r protocol. - Skin Breakdown Nursing will assess skin daily using assessment tool and will place on Skin Breakdown Precautions as indicated per protocol. - Pain Clinical staff may employ non-medication methods such as massage, distraction, decrease stimulus, etc . as needed. Clinical staff will assess patient's pain level every shift per protocol to assess and e nsure pain management effectiveness. Medications will be given and the pain level re-assessed. PRELIMINARY PLAN OF CARE: - Physical Therapy Patient needs Physical Therapy for a daily minimum of 1.5 hours at least 5 out of 7 days, to improve: Mobility, Strengthening, Transfers, Stretching, ROM, Endurance, Ability to manage stairs, Gait, and Balance. - Speech Therapy Patient needs Speech Therapy for a daily minimum of 0.5 hours at least 5 out of 7 days, to improve: S wallowing, Cognition, Language Skills, and Compensatory Strategies. - Rehabilitation Nursing Patient requires 24x7 Rehabilitation Nursing for: Pain Issues, Identifying and preventing risk factor s, Monitoring and reporting current medical conditions, Assisting with ambulation and transfer, Marcello ting with all ADL-s, Teaching patients about disease process and medications, Family teaching, Provid ing safe environment, Bowel and Bladder Issues, Skin Integrity, and Medication Management. Patient needs Bingo Usher and/or Case Management for: Discharge Planning, Arranging Home Equipmen t or Services, and Family Interventions. - Dietary and Nutrition Services Patient needs Dietary and Nutrition Services for: Adequate Nutrition, Nutritional Supplements, and Nu tritional Education. - Occupational Therapy Patient needs Occupational Therapy for a daily minimum of 1.5 hours at least 5 out of 7 days, to impr ove Activities of Daily Living, including: Eating, Grooming, Bathing, Dressing, Toileting, Toilet Tra nsfers, Community Reintegration, Higher functional activities, Adaptive Equipment, Splinting, Househo ld Tasks, and Other activities as determined. QI SCORES: - Self-Care A. Eating 03-Partial/moderate assistance B. Oral hygiene 03-Partial/moderate assistance C. Toileting hygiene 03-Partial/moderate assistance E. Shower/bathe self 03-Partial/moderate assistance F. Upper body dressing 03-Partial/moderate assistance G. Lower body dressing 03-Partial/moderate assistance H. Putting on/taking off footwear 03-Partial/moderate assistance - Mobility A. Roll left and right 03-Partial/moderate assistance B. Sit to lying 03-Partial/moderate assistance C. Lying to sitting on side of bed 03-Partial/moderate assistance D. Sit to stand 03-Partial/moderate assistance E. Chair/biy-lm-zugis transfer 03-Partial/moderate assistance F. Toilet transfer 03-Partial/moderate assistance G. Car transfer 88-Not attempted due to medical condition or safety concerns I. Walk 10 feet 88-Not attempted due to medical condition or safety concerns J. Walk 50 feet with two turns 88-Not attempted due to medical condition or safety concerns K. Walk 150 feet 88-Not attempted due to medical condition or safety concerns L. Walking 10 feet on uneven surfaces 88-Not attempted due to medical condition or safety concerns M. 1 step (curb) 88-Not attempted due to medical condition or safety concerns N. 4 steps 88-Not attempted due to medical condition or safety concerns O. 12 steps 88-Not attempted due to medical condition or safety concerns P. Picking up object 88-Not attempted due to medical condition or safety concerns R. Wheel 50 feet with two turns 88-Not attempted due to medical condition or safety concerns S. Wheel 150 feet - Bladder and Bowel Bladder continence Bowel continence - Endurance Good - Balance Fair - Safety Awareness Good POTENTIAL FUNCTIONAL GOALS FOR PATIENT TO ACHIEVE BY DISCHARGE: - Safety Precaution Patient will remain free from falls or injury at time of discharge. - Bed Mobility Patient will perform bed mobility at 4-Je level of assistance. - Transfers Patient will complete transfers from bed to chair at 4-Je level of assistance. - Mobility Patient will ambulate 150 ft with 4-Je level of assistance with RW. PATIENT REHAB POTENTIAL Ana KEARNEY is able and expected to receive 3 hours of individualized therapy daily on at least 5 of ev ju 7 days Ana KEARNEY's prognosis for significant practical improvement within a reasonable period of time appear s Good Expected level of measurable improvement will be of a practical value to Ana KEARNEY's functional capac ity or adaptations to impairments Has a viable Discharge Plan Medically appropriate; condition is sufficiently stable to participate in intensive rehab program DISCHARGE PLAN: - Estimated Length of Stay (days) 17. - Consensus on plan Discharge plan has been discussed with primary caregiver. Patient/Family is in agreement with the za n. Primary caregiver is in agreement with the plan. - Patient/Family Goals Return home independently. - Planned Living Setting Upon Discharge Home, to live with Family/Relatives. Transitional Living. CONCLUSION ON REHABILITATION NECESSITY: I have evaluated patient's pre-admission functional status and, comparing it to the patient's post-ad mission functional status now, I conclude that the pre-admission assessment was accurate. Patient's c ondition on admission supports the medical necessity of admission to IRF. It is safe to proceed with patient's therapy program. SIGNATURE PANEL: (CDT)
[2021-01-27] MEDS: ATORVASTATIN 10 MG TAB PO SCH (21:01)
[2021-01-27] MEDS: MEMANTINE HCL 10 MG TABLET PO SCH (21:02)
[2021-01-28] MEDS: LEVOTHYROXINE SOD 0.05 MG TABLET PO SCH (07:28)
[2021-01-28] MEDS: ENOXAPARIN 40 MG/0.4 ML SQ SCH (07:28)
[2021-01-28] MEDS: POLYETHYL GLY 3350 17 GM/DOSE PO SCH (08:00)
[2021-01-28] MEDS: ESCITALOPRAM 20 MG TAB PO SCH (08:02)
[2021-01-28] MEDS: levETIRAcetam 500 MG TAB PO SCH ×2 (08:02→20:20)
[2021-01-28] MEDS: VITAMIN D 5,000 UNIT CAP PO SCH (08:02)
[2021-01-28] MEDS: GABAPENTIN 300 MG CAP PO SCH ×3 (08:02→20:20)
[2021-01-28] MEDS: FERROUS SULFATE 325 MG TAB PO SCH (08:02)
[2021-01-28] MEDS: ASPIRIN 81 MG CHEWABLE TABLET PO SCH (08:02)
[2021-01-28] MEDS: ACETAMINOPHEN 500 MG TAB PO PRN (08:03)
[2021-01-28] MEDS: LIDOCAINE 4% PATCH TOP SCH (08:03)
[2021-01-28] MEDS: CHLORHEXIDINE 0.12% 473ML BOT MM SCH ×3 (08:04→20:21)
[2021-01-28] MEDS ORDERED: POLYETHYL GLY 3350 17 GM/DOSE PO PRN (08:04)
--- NOTE | 2021-01-28 12:12 | PN ---
Date of Progress Note: 01/28/2021 Subjective: The patient was seen this morning for followup. No new complaints or problems reported, except she was complaining of some skin irritation on the back of the neck due to cervical collar. No constipation. No abdominal pain. No heartburn, indigestion. No chest pain. No shortness of clifford ath. Objective: Vital Signs: Reviewed. HEENT: Unremarkable. Lungs: Clear to auscultation. Heart: Sounds normal. Abdomen: Soft. Bowel sounds normal. No guarding, rigidity, tenderness, or distention. Extremities: No leg edema. Impression: 1.Left patella fracture. 2.Compression fracture of T1 spine. 3.Posterior longitudinal ligament injury, C7-T1. Plan: We will continue current medication, continue physical therapy. I have advised nursing staff to apply some skin lotion to her neck area to give some soothing effect and then put the cervical col lar back. Continue current medical management. I will see her tomorrow for followup. JULIA/MODL Voice ID: [id number] Report ID: [id number]
[2021-01-28] MEDS: ATORVASTATIN 10 MG TAB PO SCH (20:20)
[2021-01-28] MEDS: MEMANTINE HCL 10 MG TABLET PO SCH (20:20)
[2021-01-29] MEDS: LEVOTHYROXINE SOD 0.05 MG TABLET PO SCH (06:37)
[2021-01-29] MEDS: ENOXAPARIN 40 MG/0.4 ML SQ SCH (06:51)
[2021-01-29] MEDS: FERROUS SULFATE 325 MG TAB PO SCH (07:56)
[2021-01-29] MEDS: CHLORHEXIDINE 0.12% 473ML BOT MM SCH ×3 (07:56→20:38)
[2021-01-29] MEDS: ASPIRIN 81 MG CHEWABLE TABLET PO SCH (07:57)
[2021-01-29] MEDS: levETIRAcetam 500 MG TAB PO SCH ×2 (07:57→20:23)
[2021-01-29] MEDS: CYANOCOBALAMIN 1,000 MCG TAB PO SCH (07:58)
[2021-01-29] MEDS: ESCITALOPRAM 20 MG TAB PO SCH (07:58)
[2021-01-29] MEDS: GABAPENTIN 300 MG CAP PO SCH ×4 (07:58→20:23)
[2021-01-29] MEDS: VITAMIN D 5,000 UNIT CAP PO SCH (07:58)
[2021-01-29] MEDS: OXYCODONE HCL 5 MG TAB PO PRN (07:59)
[2021-01-29] MEDS: NAPROXEN 250 MG TAB PO PRN (12:28)
--- NOTE | 2021-01-29 17:28 | R.PN ---
PROGRESS NOTES ENCOUNTER DATE AND TIME: 01/29/2021 17:18 (CDT) NAME GUERRERO KEARNEY DATE OF : 1940 DATE OF ADMISSION: 01/26/2021 15:05 (CDT) Traumatic subarachnoid hemorrhage without loss of consciousness, initial encounter (S06.6X0A)CHIEF CO MPLAINT: Traumatic subarachnoid hemorrhage SUBJECTIVE: Pt denied any depression. Pt denied any Shortness of Breath. Ambulated 900' with contact guard assistance using a rolling walker. Up and down 6" of a platform steve p with a rolling walker. Up and down 15 steps with contact guard assistance using bilateral hand thomas ls. VITAL SIGNS Temperature: 97.6 F SBP/DBP: 125/65 Pulse: 81 Resp: 16 MEDICATION ALLERGIES: No Known Drug Allergies (NKDA) ENVIRONMENTAL ALLERGIES: - Substance Allergies None Known - Other Allergies None Known NURSING: - Shower allowing shower - Bladder care per protocol - Skin care per protocol PRECAUTIONS: - Fall Precaution 1 to 1 supervision ACTIVITIES OOB only with supervision THERAPIES: - Occupational Therapy Cognitive Retraining. Visual Perceptual Training. - Dietary and Nutrition Adequate Nutrition. Nutritional Education. Nutritional Supplements. - Speech Therapy Augmentative Communication Equipment. PHYSICAL EXAM - Gen Alert and awake Lying in bed No apparent distress Oriented to: person, time, and place - Skin Surgical site on left thigh shows good hemostasis. Mild perioral hyperemia and 4 upper front teeth are missing. - Eyes No abnormalities - ENMT No abnormalities - Neck [place] cervical collar is in place - CVS RRR - Chest No abnormalities - Abd + bowel sounds - GI Soft No abnormalities - No abnormalities - Ext Mild left lower extremity edema with left knee brace in place. - MSK 4+/5 weakness in left lower extremity - Neuro 4/5 strength left lower extremity. - Psych No abnormalities ASSESSMENT: Pt. is a 80 yo Right-handed white female.On 01/25/2021 she was admitted to [facility] with diag nosis Traumatic subarachnoid hemorrhage without loss of consciousness, initial encounter (S06.6X0A).H er impairment category is Brain Dysfunction 02 - Open Injury (10.15).Pre-morbidly, Pt. was independe nt/mod-I in Locomotion, Balance, Safety Awareness, Transfers Control, Social Cognition, and Sphincter Control; and she had good Endurance and Self-Care.Currently, she has deficits of Locomotion, Balance , Sphincter Control, Transfers Control, and Endurance.Pt. is now referred to [facility] for acute in-patient rehabilitation in order to maximize patient's functional independence in activities of daily living, strength, ROM, and mobility.- Rehab Goal Patient has realistic goal of being discharged at assistance level 7-Ind to reside at Home with Fami ly/Relatives. MDM/PLAN: - Physical Therapy Gait dysfunction - to improve, our physical therapists will perform initial evaluation of pt's statu s upon admission and devise an individualized program for Gait Training, and Wheel Chair mobility Inability to transfer - to improve, our physical therapists will perform initial evaluation of pt's status upon admission and devise an individualized program for Bed mobility Need for home safety evaluation - to improve, our physical therapists will perform initial evaluatio n of pt's status upon admission and devise an individualized program for Home Evaluation Need in caregiver upon discharge - to improve, our physical therapists will perform initial evaluati on of pt's status upon admission and devise an individualized program for Caregiver Training Edema - to improve, our physical therapists will perform initial evaluation of pt's status upon admis romulo and devise an individualized program for Elevation Training, and Lymphedema Therapy New precaution - to improve, our physical therapists will perform initial evaluation of pt's status upon admission and devise an individualized program for Patient precaution education Poor balance - to improve, our physical therapists will perform initial evaluation of pt's status up on admission and devise an individualized program for Balance Training Poor endurance - to improve, our physical therapists will perform initial evaluation of pt's status upon admission and devise an individualized program for Endurance Training Achieving independence - to improve, our physical therapists will perform initial evaluation of pt's status upon admission and devise an individualized program for Community Reintegration Activities - Occupational Therapy Need for home care manager rn - to improve, our occupation therapists will perform initial evaluation of pt's status upon admission and devise an individualized program for Caregiver Training - Other See attached MAR (Medication Administration Record) - Diet Type Continue Regular - Diet - Liquid Texture Continue Regular - Tube Feed Continue N/A - Bladder care per protocol - Fall Precaution 1 to 1 supervision - Skin care per protocol - Diet - Solid Texture Continue Regular - Shower allowing shower FUNCTIONAL STATUS: UPDATED AT WEEKLY TEAM CONFERENCE - Bladder Same accident frequency: 7-Ind - No accidents in the past 7 days - Bowel Same accident frequency: 7-Ind - No accidents in the past 7 days - Walking Same score based on distance walked: 0(N/A) Same score based on distance walked: 1(<=50ft) - Wheelchair Same score based on distance traveled: 0(N/A) FUNCTIONAL STATUS: - Self-Care A. Eating Shirley B. Grooming sup C. Bathing sup D. Dressing - Upper Je E. Dressing - Lower Je F. Toileting Je - Sphincter Control G. Bladder control Shirley H. Bowel control Shirley - Transfers Control I. Bed/Chair/Wheelchair Je J. Toilet Je K. Tub/Shower modA - Locomotion L. Walk/Wheelchair (B) Je M. Stairs Je - Communication N. Comprehension (B) Shirley O. Expression (B) Shirley - Social Cognition P. Social Interaction Shirley Q. Problem Solving sup R. Memory sup - Endurance Fair - Balance Fair - Safety Awareness Fair QI SCORES: - Self-Care A. Eating 03-Partial/moderate assistance B. Oral hygiene 03-Partial/moderate assistance C. Toileting hygiene 03-Partial/moderate assistance E. Shower/bathe self 03-Partial/moderate assistance F. Upper body dressing 03-Partial/moderate assistance G. Lower body dressing 03-Partial/moderate assistance H. Putting on/taking off footwear 03-Partial/moderate assistance - Mobility A. Roll left and right 03-Partial/moderate assistance B. Sit to lying 03-Partial/moderate assistance C. Lying to sitting on side of bed 03-Partial/moderate assistance D. Sit to stand 03-Partial/moderate assistance E. Chair/ree-bg-jyzyb transfer 03-Partial/moderate assistance F. Toilet transfer 03-Partial/moderate assistance G. Car transfer 88-Not attempted due to medical condition or safety concerns I. Walk 10 feet 88-Not attempted due to medical condition or safety concerns J. Walk 50 feet with two turns 88-Not attempted due to medical condition or safety concerns K. Walk 150 feet 88-Not attempted due to medical condition or safety concerns L. Walking 10 feet on uneven surfaces 88-Not attempted due to medical condition or safety concerns M. 1 step (curb) 88-Not attempted due to medical condition or safety concerns N. 4 steps 88-Not attempted due to medical condition or safety concerns O. 12 steps 88-Not attempted due to medical condition or safety concerns P. Picking up object 88-Not attempted due to medical condition or safety concerns R. Wheel 50 feet with two turns 88-Not attempted due to medical condition or safety concerns S. Wheel 150 feet - Bladder and Bowel Bladder continence Bowel continence - Endurance Good - Balance Fair - Safety Awareness Good [facility]IC[facility]: Self-Care, Mobility, and Balance SIGNATURE PANEL: (CDT)
[2021-01-29] MEDS: ATORVASTATIN 10 MG TAB PO SCH (20:23)
[2021-01-29] MEDS: MEMANTINE HCL 10 MG TABLET PO SCH (20:23)
[2021-01-30] MEDS: LEVOTHYROXINE SOD 0.05 MG TABLET PO SCH (06:27)
[2021-01-30] MEDS: LIDOCAINE 4% PATCH TOP PRN (06:27)
[2021-01-30] MEDS: ENOXAPARIN 40 MG/0.4 ML SQ SCH (06:27)
[2021-01-30] MEDS: OXYCODONE HCL 5 MG TAB PO PRN (07:58)
[2021-01-30] MEDS: ASPIRIN 81 MG CHEWABLE TABLET PO SCH (07:59)
[2021-01-30] MEDS: levETIRAcetam 500 MG TAB PO SCH ×2 (07:59→19:29)
[2021-01-30] MEDS: ESCITALOPRAM 20 MG TAB PO SCH (07:59)
[2021-01-30] MEDS: CYANOCOBALAMIN 1,000 MCG TAB PO SCH (08:00)
[2021-01-30] MEDS: GABAPENTIN 300 MG CAP PO SCH ×3 (08:00→19:29)
[2021-01-30] MEDS: FERROUS SULFATE 325 MG TAB PO SCH (08:00)
[2021-01-30] MEDS: VITAMIN D 5,000 UNIT CAP PO SCH (08:00)
[2021-01-30] MEDS: CHLORHEXIDINE 0.12% 473ML BOT MM SCH ×3 (08:01→19:31)
[2021-01-30] MEDS: NAPROXEN 250 MG TAB PO PRN (12:12)
--- NOTE | 2021-01-30 14:47 | PN ---
Date of Progress Note: 01/29/2021 Subjective: The patient was seen this morning for followup. No new complaints or problems reported by the patient. Lying in bed, not in distress. She slept very well last night. Denies any chest pa in, shortness of breath. No abdominal pain. No nausea, vomiting. Objective: Vital Signs: Reviewed. HEENT: Unremarkable. Lungs: Clear to auscultation. Heart: Sounds normal. Abdomen: Soft. Bowel sounds normal. No guarding, rigidity, tenderness, or distention. Extremities: No leg edema. Impression: 1.Left patella fracture. 2.Compression fracture of T1 spine. 3.Subdural hematoma. 4.C7-T1 ligament injury. 5.Benign essential tremor. Plan: We will continue current medications. The patient has a hard cervical collar in place, we john l continue to use that. She also has left leg brace. We will continue to follow with Dr. Beckwith _ the patient's physical therapy. Continue current medical management. JULIA/MODL Voice ID: [id number] Report ID: [id number]
--- NOTE | 2021-01-30 16:51 | R.PN ---
PROGRESS NOTES ENCOUNTER DATE AND TIME: 01/30/2021 16:47 (CDT) NAME GUERRERO KEARNEY DATE OF : 1940 DATE OF ADMISSION: 01/26/2021 15:05 (CDT) Traumatic subarachnoid hemorrhage without loss of consciousness, initial encounter (S06.6X0A)CHIEF CO MPLAINT: Traumatic subarachnoid hemorrhage SUBJECTIVE: Pt denied any depression. Pt denied any Shortness of Breath. Ambulated 670' with standby assistance using a rolling walker. Up and down 10 steps with contact gua rd assistance using bilateral hand rails. Prealbumin 15.1, calcium 8.1, Hgb 9.6, WBC 5.7, UA is negative. VITAL SIGNS Temperature: 97.3 F SBP/DBP: 131/62 Pulse: 83 Resp: 16 MEDICATION ALLERGIES: No Known Drug Allergies (NKDA) ENVIRONMENTAL ALLERGIES: - Substance Allergies None Known - Other Allergies None Known NURSING: - Shower allowing shower - Bladder care per protocol - Skin care per protocol PRECAUTIONS: - Fall Precaution 1 to 1 supervision ACTIVITIES OOB only with supervision THERAPIES: - Occupational Therapy Cognitive Retraining. Visual Perceptual Training. - Dietary and Nutrition Adequate Nutrition. Nutritional Education. Nutritional Supplements. - Speech Therapy Augmentative Communication Equipment. PHYSICAL EXAM - Gen Alert and awake Lying in bed No apparent distress Oriented to: person, time, and place - Skin Surgical site on left thigh shows good hemostasis. Mild perioral hyperemia and 4 upper front teeth are missing. - Eyes No abnormalities - ENMT No abnormalities - Neck [place] J cervical collar is in place - CVS RRR - Chest No abnormalities - Abd + bowel sounds - GI Soft No abnormalities - No abnormalities - Ext Mild left lower extremity edema with left knee brace in place. - MSK 4+/5 weakness in left lower extremity - Neuro 4/5 strength left lower extremity. - Psych No abnormalities ASSESSMENT: Pt. is a 80 yo Right-handed white female.On 01/25/2021 she was admitted to [facility] with diag nosis Traumatic subarachnoid hemorrhage without loss of consciousness, initial encounter (S06.6X0A).H er impairment category is Brain Dysfunction 02 - Open Injury (10.15).Pre-morbidly, Pt. was independe nt/mod-I in Locomotion, Balance, Safety Awareness, Transfers Control, Social Cognition, and Sphincter Control; and she had good Endurance and Self-Care.Currently, she has deficits of Locomotion, Balance , Sphincter Control, Transfers Control, and Endurance.Pt. is now referred to [facility] for acute in-patient rehabilitation in order to maximize patient's functional independence in activities of daily living, strength, ROM, and mobility.- Rehab Goal Patient has realistic goal of being discharged at assistance level 7-Ind to reside at Home with Fami ly/Relatives. MDM/PLAN: - Physical Therapy Gait dysfunction - to improve, our physical therapists will perform initial evaluation of pt's statu s upon admission and devise an individualized program for Gait Training, and Wheel Chair mobility Inability to transfer - to improve, our physical therapists will perform initial evaluation of pt's status upon admission and devise an individualized program for Bed mobility Need for home safety evaluation - to improve, our physical therapists will perform initial evaluatio n of pt's status upon admission and devise an individualized program for Home Evaluation Need in caregiver upon discharge - to improve, our physical therapists will perform initial evaluati on of pt's status upon admission and devise an individualized program for Caregiver Training Edema - to improve, our physical therapists will perform initial evaluation of pt's status upon admi ssion and devise an individualized program for Elevation Training, and Lymphedema Therapy New precaution - to improve, our physical therapists will perform initial evaluation of pt's status upon admission and devise an individualized program for Patient precaution education Poor balance - to improve, our physical therapists will perform initial evaluation of pt's status up on admission and devise an individualized program for Balance Training Poor endurance - to improve, our physical therapists will perform initial evaluation of pt's status upon admission and devise an individualized program for Endurance Training Achieving independence - to improve, our physical therapists will perform initial evaluation of pt's status upon admission and devise an individualized program for Community Reintegration Activities - Occupational Therapy Need for intensive care unit registered nurse - to improve, our occupation therapists will perform initial evaluation of pt's status upon admission and devise an individualized program for Caregiver Training - Other See attached MAR (Medication Administration Record) - Diet Type Continue Regular - Diet - Liquid Texture Continue Regular - Tube Feed Continue N/A - Bladder care per protocol - Fall Precaution 1 to 1 supervision - Skin care per protocol - Diet - Solid Texture Continue Regular - Shower allowing shower FUNCTIONAL STATUS: UPDATED AT WEEKLY TEAM CONFERENCE - Bladder Same accident frequency: 7-Ind - No accidents in the past 7 days - Bowel Same accident frequency: 7-Ind - No accidents in the past 7 days - Walking Same score based on distance walked: 0(N/A) Same score based on distance walked: 1(<=50ft) - Wheelchair Same score based on distance traveled: 0(N/A) FUNCTIONAL STATUS: - Self-Care A. Eating Shirley B. Grooming sup C. Bathing sup D. Dressing - Upper Je E. Dressing - Lower Je F. Toileting Je - Sphincter Control G. Bladder control Shirley H. Bowel control Shirley - Transfers Control I. Bed/Chair/Wheelchair Je J. Toilet Je K. Tub/Shower modA - Locomotion L. Walk/Wheelchair (B) Je M. Stairs Je - Communication N. Comprehension (B) Shirley O. Expression (B) Shirley - Social Cognition P. Social Interaction Shirley Q. Problem Solving sup R. Memory sup - Endurance Fair - Balance Fair - Safety Awareness Fair QI SCORES: - Self-Care A. Eating 03-Partial/moderate assistance B. Oral hygiene 03-Partial/moderate assistance C. Toileting hygiene 03-Partial/moderate assistance E. Shower/bathe self 03-Partial/moderate assistance F. Upper body dressing 03-Partial/moderate assistance G. Lower body dressing 03-Partial/moderate assistance H. Putting on/taking off footwear 03-Partial/moderate assistance - Mobility A. Roll left and right 03-Partial/moderate assistance B. Sit to lying 03-Partial/moderate assistance C. Lying to sitting on side of bed 03-Partial/moderate assistance D. Sit to stand 03-Partial/moderate assistance E. Chair/gnz-gx-wtsoc transfer 03-Partial/moderate assistance F. Toilet transfer 03-Partial/moderate assistance G. Car transfer 88-Not attempted due to medical condition or safety concerns I. Walk 10 feet 88-Not attempted due to medical condition or safety concerns J. Walk 50 feet with two turns 88-Not attempted due to medical condition or safety concerns K. Walk 150 feet 88-Not attempted due to medical condition or safety concerns L. Walking 10 feet on uneven surfaces 88-Not attempted due to medical condition or safety concerns M. 1 step (curb) 88-Not attempted due to medical condition or safety concerns N. 4 steps 88-Not attempted due to medical condition or safety concerns O. 12 steps 88-Not attempted due to medical condition or safety concerns P. Picking up object 88-Not attempted due to medical condition or safety concerns R. Wheel 50 feet with two turns 88-Not attempted due to medical condition or safety concerns S. Wheel 150 feet - Bladder and Bowel Bladder continence Bowel continence - Endurance Good - Balance Fair - Safety Awareness Good CURRENT FUNC. DEFICITS: Self-Care, Mobility, and Balance SIGNATURE PANEL: (CDT)
[2021-01-30] MEDS: MEMANTINE HCL 10 MG TABLET PO SCH (19:29)
[2021-01-30] MEDS: ATORVASTATIN 10 MG TAB PO SCH (19:29)
--- NOTE | 2021-01-30 23:32 | PN ---
Date of Progress Note: 01/30/2021 Subjective: The patient was seen this morning for followup. No new complaints or problems reported by patient. She was lying in bed, not in any distress. Denies any constipation. No shortness of br eath. No chest pain. No neck pain. Her pain in left leg is well controlled with pain medication. Objective: Vital Signs: Reviewed. HEENT: Examination unremarkable. Lungs: Clear to auscultation. Heart: Sounds normal. Abdomen: Soft. Bowel sounds normal. No guarding, rigidity, tenderness, or distention. Extremities: No leg edema. Impression: 1.Compression fracture, T1 spine. 2.Left patellar fracture. 3.Subdural hematoma. 4.Hypertension. Plan: We will continue current medication. Continue current DVT prophylaxis. Physical therapy to jason serra provided under guidance of Dr. Beckwith and I will see her tomorrow for followup. JULIA/MODL Voice ID: [id number] Report ID: [id number]
[2021-01-31] MEDS: ENOXAPARIN 40 MG/0.4 ML SQ SCH (06:56)
[2021-01-31] MEDS: LEVOTHYROXINE SOD 0.05 MG TABLET PO SCH (06:56)
[2021-01-31] MEDS: CHLORHEXIDINE 0.12% 473ML BOT MM SCH ×3 (07:59→19:08)
[2021-01-31] MEDS: GABAPENTIN 300 MG CAP PO SCH ×3 (08:00→19:08)
[2021-01-31] MEDS: VITAMIN D 5,000 UNIT CAP PO SCH (08:00)
[2021-01-31] MEDS: levETIRAcetam 500 MG TAB PO SCH ×2 (08:00→19:08)
[2021-01-31] MEDS: FERROUS SULFATE 325 MG TAB PO SCH (08:00)
[2021-01-31] MEDS: ASPIRIN 81 MG CHEWABLE TABLET PO SCH (08:00)
[2021-01-31] MEDS: CYANOCOBALAMIN 1,000 MCG TAB PO SCH (08:00)
[2021-01-31] MEDS: ESCITALOPRAM 20 MG TAB PO SCH (08:01)
[2021-01-31] MEDS: ACETAMINOPHEN 500 MG TAB PO PRN (08:02)
[2021-01-31] MEDS: MEMANTINE HCL 10 MG TABLET PO SCH (19:07)
[2021-01-31] MEDS: ATORVASTATIN 10 MG TAB PO SCH (19:08)
--- NOTE | 2021-01-31 22:57 | PN ---
Date of Progress Note: 01/31/2021 Subjective: Patient was seen this morning for followup. No new complaints or problems reported by ainsley pearson. Lying in bed, not in distress. Objective: Vital Signs: Reviewed. HEENT: Examination unremarkable. Lungs: Clear to auscultation. Heart: Sounds normal. Abdomen: Soft. Bowel sounds normal. No guarding, rigidity, tenderness, distention. Extremities: No leg edema. Impression: 1.Subdural hematoma. 2.Fracture, left patella. 3.Compression fracture of T1 spine. 4.Hypertension. 5.Anemia. Plan: We will continue current medications. Continue current DVT prophylaxis with Lovenox. Continu e iron supplement and current pain medication. Physical therapy to be provided under guidance of Dr. Beckwith. JULIA/MODL Voice ID: [id number] Report ID: [id number]
[2021-02-01 06:11] LABS: Absolute Lymphocytes (CBC) 1.7 K/uL (0.7-4.9); Basophils % 0.2 % (0-1.3); Hematocrit 27.3 % (36.0-45.0); Lymphocytes % 34.3 % (15.3-44.8); MPV 7.9 fL (7.6-11.3); RBC Red Blood Cell Count 2.76 M/uL (3.86-4.86)
[2021-02-01 06:30] LABS: Albumin 2.9 g/dL (3.4-5.0); Magnesium 2.5 mg/dL (1.8-2.4); Potassium 4.4 mmol/L (3.5-5.1); Prealbumin 17.9 mg/dL (20-40)
[2021-02-01] MEDS: ENOXAPARIN 40 MG/0.4 ML SQ SCH (06:52)
[2021-02-01] MEDS: LEVOTHYROXINE SOD 0.05 MG TABLET PO SCH (06:52)
[2021-02-01] MEDS: levETIRAcetam 500 MG TAB PO SCH ×2 (08:38→20:23)
[2021-02-01] MEDS: ASPIRIN 81 MG CHEWABLE TABLET PO SCH (08:38)
[2021-02-01] MEDS: FERROUS SULFATE 325 MG TAB PO SCH ×2 (08:38→20:23)
[2021-02-01] MEDS: ESCITALOPRAM 20 MG TAB PO SCH (08:38)
[2021-02-01] MEDS: GABAPENTIN 300 MG CAP PO SCH ×3 (08:39→20:24)
[2021-02-01] MEDS: CYANOCOBALAMIN 1,000 MCG TAB PO SCH (08:40)
[2021-02-01] MEDS: ACETAMINOPHEN 500 MG TAB PO PRN (08:40)
[2021-02-01] MEDS: VITAMIN D 5,000 UNIT CAP PO SCH (08:40)
[2021-02-01] MEDS: CHLORHEXIDINE 0.12% 473ML BOT MM SCH ×3 (08:42→20:24)
[2021-02-01] MEDS: ENSURE HIGH PROTEIN 237 ML CAN PO SCH (17:13)
--- NOTE | 2021-02-01 18:18 | R.PN ---
PROGRESS NOTES ENCOUNTER DATE AND TIME: 02/01/2021 18:12 (CDT) NAME GUERRERO KEARNEY DATE OF : 1940 DATE OF ADMISSION: 01/26/2021 15:05 (CDT) Traumatic subarachnoid hemorrhage without loss of consciousness, initial encounter (S06.6X0A)CHIEF CO MPLAINT: Traumatic subarachnoid hemorrhage SUBJECTIVE: Pt denied any depression. Pt denied any Shortness of Breath. Ambulated 460' with contact guard assistance using a rolling walker. Up and down [address] guard assistance using bilateral hand rails. Prealbumin 17.9, calcium 8.8, Hgb 9.1, WBC 5.0, UA is negative. VITAL SIGNS Temperature: 97.3 F SBP/DBP: 121/60 Pulse: 83 Resp: 16 MEDICATION ALLERGIES: No Known Drug Allergies (NKDA) ENVIRONMENTAL ALLERGIES: - Substance Allergies None Known - Other Allergies None Known NURSING: - Shower allowing shower - Bladder care per protocol - Skin care per protocol PRECAUTIONS: - Fall Precaution 1 to 1 supervision ACTIVITIES OOB only with supervision THERAPIES: - Occupational Therapy Cognitive Retraining. Visual Perceptual Training. - Dietary and Nutrition Adequate Nutrition. Nutritional Education. Nutritional Supplements. - Speech Therapy Augmentative Communication Equipment. PHYSICAL EXAM - Gen Alert and awake Lying in bed No apparent distress Oriented to: person, time, and place - Skin Surgical site on left thigh shows good hemostasis. Mild perioral hyperemia and 4 upper front teeth are missing. - Eyes No abnormalities - ENMT No abnormalities - Neck [place] J cervical collar is in place - CVS RRR - Chest No abnormalities - Abd + bowel sounds - GI Soft No abnormalities - No abnormalities - Ext Mild left lower extremity edema with left knee brace in place. - MSK 4+/5 weakness in left lower extremity - Neuro 4/5 strength left lower extremity. - Psych No abnormalities ASSESSMENT: Pt. is a 80 yo Right-handed white female.On 01/25/2021 she was admitted to [facility] with diag nosis Traumatic subarachnoid hemorrhage without loss of consciousness, initial encounter (S06.6X0A).H er impairment category is Brain Dysfunction 02 - Open Injury (10.15).Pre-morbidly, Pt. was independe nt/mod-I in Locomotion, Balance, Safety Awareness, Transfers Control, Social Cognition, and Sphincter Control; and she had good Endurance and Self-Care.Currently, she has deficits of Locomotion, Balance , Sphincter Control, Transfers Control, and Endurance.Pt. is now referred to [facility] for acute in-patient rehabilitation in order to maximize patient's functional independence in activities of daily living, strength, ROM, and mobility.- Rehab Goal Patient has realistic goal of being discharged at assistance level 7-Ind to reside at Home with Fami ly/Relatives. MDM/PLAN: - Physical Therapy Gait dysfunction - to improve, our physical therapists will perform initial evaluation of pt's statu s upon admission and devise an individualized program for Gait Training, and Wheel Chair mobility Inability to transfer - to improve, our physical therapists will perform initial evaluation of pt's status upon admission and devise an individualized program for Bed mobility Need for home safety evaluation - to improve, our physical therapists will perform initial evaluatio n of pt's status upon admission and devise an individualized program for Home Evaluation Need in caregiver upon discharge - to improve, our physical therapists will perform initial evaluati on of pt's status upon admission and devise an individualized program for Caregiver Training Edema - to improve, our physical therapists will perform initial evaluation of pt's status upon admi ssion and devise an individualized program for Elevation Training, and Lymphedema Therapy New precaution - to improve, our physical therapists will perform initial evaluation of pt's status upon admission and devise an individualized program for Patient precaution education Poor balance - to improve, our physical therapists will perform initial evaluation of pt's status up on admission and devise an individualized program for Balance Training Poor endurance - to improve, our physical therapists will perform initial evaluation of pt's status upon admission and devise an individualized program for Endurance Training Achieving independence - to improve, our physical therapists will perform initial evaluation of pt's status upon admission and devise an individualized program for Community Reintegration Activities - Occupational Therapy Need for clinical care coordinator - to improve, our occupation therapists will perform initial evaluation of pt's status upon admission and devise an individualized program for Caregiver Training - Other See attached MAR (Medication Administration Record) - Diet Type Continue Regular - Diet - Liquid Texture Continue Regular - Tube Feed Continue N/A - Bladder care per protocol - Fall Precaution 1 to 1 supervision - Skin care per protocol - Diet - Solid Texture Continue Regular - Shower allowing shower FUNCTIONAL STATUS: UPDATED AT WEEKLY TEAM CONFERENCE - Bladder Same accident frequency: 7-Ind - No accidents in the past 7 days - Bowel Same accident frequency: 7-Ind - No accidents in the past 7 days - Walking Same score based on distance walked: 0(N/A) Same score based on distance walked: 1(<=50ft) - Wheelchair Same score based on distance traveled: 0(N/A) FUNCTIONAL STATUS: - Self-Care A. Eating Shirley B. Grooming sup C. Bathing sup D. Dressing - Upper Je E. Dressing - Lower Je F. Toileting Je - Sphincter Control G. Bladder control Shirley H. Bowel control Shirley - Transfers Control I. Bed/Chair/Wheelchair Je J. Toilet Je K. Tub/Shower modA - Locomotion L. Walk/Wheelchair (B) Je M. Stairs Je - Communication N. Comprehension (B) Shirley O. Expression (B) Shirley - Social Cognition P. Social Interaction Shirley Q. Problem Solving sup R. Memory sup - Endurance Fair - Balance Fair - Safety Awareness Fair QI SCORES: - Self-Care A. Eating 03-Partial/moderate assistance B. Oral hygiene 03-Partial/moderate assistance C. Toileting hygiene 03-Partial/moderate assistance E. Shower/bathe self 03-Partial/moderate assistance F. Upper body dressing 03-Partial/moderate assistance G. Lower body dressing 03-Partial/moderate assistance H. Putting on/taking off footwear 03-Partial/moderate assistance - Mobility A. Roll left and right 03-Partial/moderate assistance B. Sit to lying 03-Partial/moderate assistance C. Lying to sitting on side of bed 03-Partial/moderate assistance D. Sit to stand 03-Partial/moderate assistance E. Chair/qeb-tk-nvkah transfer 03-Partial/moderate assistance F. Toilet transfer 03-Partial/moderate assistance G. Car transfer 88-Not attempted due to medical condition or safety concerns I. Walk 10 feet 88-Not attempted due to medical condition or safety concerns J. Walk 50 feet with two turns 88-Not attempted due to medical condition or safety concerns K. Walk 150 feet 88-Not attempted due to medical condition or safety concerns L. Walking 10 feet on uneven surfaces 88-Not attempted due to medical condition or safety concerns M. 1 step (curb) 88-Not attempted due to medical condition or safety concerns N. 4 steps 88-Not attempted due to medical condition or safety concerns O. 12 steps 88-Not attempted due to medical condition or safety concerns P. Picking up object 88-Not attempted due to medical condition or safety concerns R. Wheel 50 feet with two turns 88-Not attempted due to medical condition or safety concerns S. Wheel 150 feet - Bladder and Bowel Bladder continence Bowel continence - Endurance Good - Balance Fair - Safety Awareness Good CURRENT FUNC. DEFICITS: Self-Care, Mobility, and Balance SIGNATURE PANEL: (CDT)
[2021-02-01] MEDS: MEMANTINE HCL 10 MG TABLET PO SCH (20:22)
[2021-02-01] MEDS: PROPRANOLOL HCL 10 MG TAB PO SCH (20:23)
[2021-02-01] MEDS: ATORVASTATIN 10 MG TAB PO SCH (20:23)
--- NOTE | 2021-02-02 00:46 | PN ---
Date of Progress Note: 02/01/2021 Subjective: The patient was seen this morning for followup. No new complaints or problems reported by the patient. Lying in bed. Not in distress. Vital signs reviewed. Denies any chest pain, short ness of breath, nausea, vomiting. No constipation. No diarrhea. Objective: HEENT: Unremarkable. Lungs: Clear to auscultation. Heart: Sounds normal. Abdomen: Soft. Bowel sounds normal. No guarding, rigidity, tenderness, or distention. Extremities: No leg edema. Laboratory Data: White count 5, hemoglobin 9.1, and platelet count of 324. Sodium 144, potassium 4. 4, chloride 110, bicarb 31, BUN 18, creatinine 0.95, glucose 99, albumin 2.90, prealbumin 17.9. Impression: 1.Left patella fracture. 2.Subdural hematoma. 3.Ligament injury, C7-T1. 4.Hypertension. 5.Anemia. Plan: We will continue current medications. Continue current DVT prophylaxis. Physical therapy to be provided under guidance of Dr. Beckwith and I will see her tomorrow for followup. JULIA/MODL Voice ID: [id number] Report ID: [id number]
[2021-02-02] MEDS: LEVOTHYROXINE SOD 0.05 MG TABLET PO SCH (06:38)
[2021-02-02] MEDS: LIDOCAINE 4% PATCH TOP PRN (06:38)
[2021-02-02] MEDS: ENOXAPARIN 40 MG/0.4 ML SQ SCH (06:41)
[2021-02-02] MEDS: OXYCODONE HCL 5 MG TAB PO PRN (08:29)
[2021-02-02] MEDS: FERROUS SULFATE 325 MG TAB PO SCH ×2 (08:30→20:34)
[2021-02-02] MEDS: GABAPENTIN 300 MG CAP PO SCH ×3 (08:30→20:34)
[2021-02-02] MEDS: VITAMIN D 5,000 UNIT CAP PO SCH (08:31)
[2021-02-02] MEDS: ASPIRIN 81 MG CHEWABLE TABLET PO SCH (08:31)
[2021-02-02] MEDS: ESCITALOPRAM 20 MG TAB PO SCH (08:31)
[2021-02-02] MEDS: levETIRAcetam 500 MG TAB PO SCH ×2 (08:31→20:34)
[2021-02-02] MEDS: CHLORHEXIDINE 0.12% 473ML BOT MM SCH ×3 (08:32→20:35)
[2021-02-02] MEDS: PROPRANOLOL HCL 10 MG TAB PO SCH ×2 (08:32→20:34)
[2021-02-02] MEDS: CYANOCOBALAMIN 1,000 MCG TAB PO SCH (08:32)
--- NOTE | 2021-02-02 09:58 | P.RH.PN ---
Estimated Length of Stay: 14 Expected Discharge Date: 02/08/21 Discharge Disposition Plan: Home Family Support: Yes Detention Goal: Mobility, Transfers, Self Care Vital Signs: Last Vital Signs Temp 97.4 F 02/02/21 09:39 Pulse 83 02/02/21 09:39 Resp 16 02/02/21 09:39 BP 128/67 02/02/21 09:39 Pulse Ox 96 02/02/21 09:39 Laboratory: Laboratory Last Values WBC 5.00 K/uL (4.3-10.9) 02/01/21 06:00 RBC 2.76 M/uL (3.86-4.86) L 02/01/21 06:00 Hgb 9.1 g/dL (12.0-15.0) L 02/01/21 06:00 Hct 27.3 % (36.0-45.0) L 02/01/21 06:00 MCV 98.8 fL (80-100) 02/01/21 06:00 MCH 33.0 pg (27.0-35.0) 02/01/21 06:00 MCHC 33.4 g/dL (32.0-36.0) 02/01/21 06:00 RDW 13.2 % (12.1-15.2) 02/01/21 06:00 Plt Count 324 K/uL (152-406) D 02/01/21 06:00 MPV 7.9 fL (7.6-11.3) 02/01/21 06:00 Neutrophils % 45.5 % (41.7-73.7) 02/01/21 06:00 Lymphocytes % 34.3 % (15.3-44.8) 02/01/21 06:00 Monocytes % 12.1 % (3.3-12.3) 02/01/21 06:00 Eosinophils % 7.9 % (0-4.4) H 02/01/21 06:00 Basophils % 0.2 % (0-1.3) 02/01/21 06:00 Absolute Neutrophils 2.3 K/uL (1.8-8.0) 02/01/21 06:00 Absolute Lymphocytes 1.7 K/uL (0.7-4.9) 02/01/21 06:00 Absolute Monocytes 0.6 K/uL (0.1-1.3) 02/01/21 06:00 Absolute Eosinophils 0.4 K/uL (0-0.5) 02/01/21 06:00 Absolute Basophils 0.0 K/uL (0-0.5) 02/01/21 06:00 Sodium 144 mmol/L (136-145) 02/01/21 06:00 Potassium 4.4 mmol/L (3.5-5.1) 02/01/21 06:00 Chloride 110 mmol/L (98-107) H 02/01/21 06:00 Carbon Dioxide 31 mmol/L (21-32) 02/01/21 06:00 BUN 18 mg/dL (7-18) 02/01/21 06:00 Creatinine 0.95 mg/dL (0.55-1.3) 02/01/21 06:00 Estimated GFR 56 mL/min (=/>90) L 02/01/21 06:00 Glucose 99 mg/dL (74-106) 02/01/21 06:00 Calcium 8.8 mg/dL (8.5-10.1) 02/01/21 06:00 Magnesium 2.5 mg/dL (1.8-2.4) H 02/01/21 06:00 Albumin 2.9 g/dL (3.4-5.0) L 02/01/21 06:00 Prealbumin 17.9 mg/dL (20-40) L 02/01/21 06:00 Urine Color Yellow (Yellow) 01/27/21 05:04 Urine Appearance Clear (Clear) 01/27/21 05:04 Urine pH 5.5 (5.0-7.0) 01/27/21 05:04 Ur Specific [place] 1.015 (1.005-1.030) 01/27/21 05:04 Glucose (UA)(Auto) Negative (Negative) 01/27/21 05:04 Urine Ketones Negative (Negative) 01/27/21 05:04 Urine Blood Negative (Negative) 01/27/21 05:04 Urine Nitrite Negative (Negative) 01/27/21 05:04 Urine Bilirubin Negative (Negative) 01/27/21 05:04 Urine Urobilinogen 1.0 mg/dL (0.2-1.0) 01/27/21 05:04 Ur Leukocyte Esterase Negative (Negative) 01/27/21 05:04 Urine RBC Cancelled 01/26/21 17:15 Urine WBC Cancelled 01/26/21 17:15 Ur Squamous Epith Cells Cancelled 01/26/21 17:15 Ur Urothelial Cells Cancelled 01/26/21 17:15 Calcium Oxalate Crystal Cancelled 01/26/21 17:15 Uric Acid Crystals Cancelled 01/26/21 17:15 Triple Phos Crystals Cancelled 01/26/21 17:15 Other Crystals Cancelled 01/26/21 17:15 Amorphous Sediment Cancelled 01/26/21 17:15 Glitter Cells Cancelled 01/26/21 17:15 Urine Bacteria Cancelled 01/26/21 17:15 Hyaline Casts Cancelled 01/26/21 17:15 Fine Granular Casts Cancelled 01/26/21 17:15 Coarse Granular Casts Cancelled 01/26/21 17:15 Waxy Casts Cancelled 01/26/21 17:15 RBC Casts Cancelled 01/26/21 17:15 WBC Casts Cancelled 01/26/21 17:15 Urine Mucus Cancelled 01/26/21 17:15 Urine Other Cancelled 01/26/21 17:15 Urine Trichomonas Cancelled 01/26/21 17:15 Urine Yeast Cancelled 01/26/21 17:15 Ur Yeast w Hyphae Cancelled 01/26/21 17:15 Urine Yeast (Budding) Cancelled 01/26/21 17:15 Urine Sperm Cancelled 01/26/21 17:15 Urine Culture Reflexed Cancelled 01/26/21 17:15 Urine Total Volume Cancelled 01/26/21 17:15 Urine Total Protein Negative (Negative) 01/27/21 05:04 SARS-CoV-2 RNA (RT-PCR) Negative (NEGATIVE) 01/26/21 15:45 Weight: 188 lb Wound Present: No Closed Surgical Incision Present: Yes Negative Pressure Wound Therapy Present: No Physician Update: Labs are reviewed and are stable. She is doing better with ADLs, transfers, using adaptive equipment. She is at standby assistance with transfers, walking 250', up and down stairs as well. Summary: Patient's care plan and fci goals have been reviewed and revised as necessary. Please see the Rehabilitation Signature page for all necessary signatures.
[2021-02-02] MEDS: NAPROXEN 250 MG TAB PO PRN (12:03)
--- NOTE | 2021-02-02 12:20 | PN ---
Date of Progress Note: 02/02/2021 Subjective: The patient was seen this morning for followup. No new complaints, problems reported by patient, lying in bed, not in distress. Objective: Vital Signs: Reviewed. HEENT: Unremarkable. Cervical collar is in place on the neck region. Lungs: Clear to auscultation. Heart: Sounds normal. Abdomen: Soft. Bowel sounds normal. No guarding, rigidity, tenderness, distention. Extremities: No leg edema. Impression: 1.Hypertension. 2.Subdural hematoma. 3.Left patellar fracture. Plan: We will continue current medication. Continue physical therapy under guidance of Dr. Beckwith . Continue iron supplement for anemia problem and DVT prophylaxis using . We will see her tomorrow for followup. JULIA/MODL Voice ID: [id number] Report ID: [id number]
--- NOTE | 2021-02-02 12:45 | RAD REPORT ---
EXAM DESCRIPTION: CT - Head Brain Wo Cont - 02/02/2021 11:52 am CLINICAL HISTORY: Subdural hematoma COMPARISON: Recent examinations are not available TECHNIQUE: Computed axial tomography of the head was obtained. IV contrast was not requested. All CT scans are performed using dose optimization technique as appropriate and may include automated exposure control or mA/KV adjustment according to patient size. FINDINGS: Clinical history states subdural hematoma. A subdural hematoma is not visualized on the cu rrent examination. The ventricles are normal in caliber. No extra-axial fluid collection is noted. Mild to moderate low-density areas within periventricular, deep and subcortical white matter likely r epresent ischemic changes secondary to small vessel disease. Fluid within the sinuses/ mastoids is not seen. IMPRESSION: No acute intracranial abnormality is seen.
[2021-02-02] MEDS: ENSURE HIGH PROTEIN 237 ML CAN PO SCH (16:38)
[2021-02-02] MEDS: MEMANTINE HCL 10 MG TABLET PO SCH (20:35)
[2021-02-02] MEDS: ATORVASTATIN 10 MG TAB PO SCH (20:35)
[2021-02-03 05:44] VITALS: BMI 30.2
[2021-02-03] MEDS: LEVOTHYROXINE SOD 0.05 MG TABLET PO SCH (06:32)
[2021-02-03] MEDS: ENOXAPARIN 40 MG/0.4 ML SQ SCH (06:32)
[2021-02-03] MEDS: LIDOCAINE 4% PATCH TOP PRN (06:33)
[2021-02-03] MEDS: OXYCODONE HCL 5 MG TAB PO PRN (08:33)
[2021-02-03] MEDS: CYANOCOBALAMIN 1,000 MCG TAB PO SCH (08:34)
[2021-02-03] MEDS: ESCITALOPRAM 20 MG TAB PO SCH (08:34)
[2021-02-03] MEDS: GABAPENTIN 300 MG CAP PO SCH ×3 (08:34→19:30)
[2021-02-03] MEDS: FERROUS SULFATE 325 MG TAB PO SCH ×2 (08:34→19:30)
[2021-02-03] MEDS: levETIRAcetam 500 MG TAB PO SCH ×2 (08:34→19:29)
[2021-02-03] MEDS: ASPIRIN 81 MG CHEWABLE TABLET PO SCH (08:34)
[2021-02-03] MEDS: PROPRANOLOL HCL 10 MG TAB PO SCH ×2 (08:35→19:29)
[2021-02-03] MEDS: VITAMIN D 5,000 UNIT CAP PO SCH (08:35)
[2021-02-03] MEDS: CHLORHEXIDINE 0.12% 473ML BOT MM SCH ×3 (08:41→19:31)
[2021-02-03 09:39] VITALS: TEMP 97.1
[2021-02-03] MEDS: ENSURE HIGH PROTEIN 237 ML CAN PO SCH (17:04)
[2021-02-03] MEDS: MEMANTINE HCL 10 MG TABLET PO SCH (19:29)
[2021-02-03] MEDS: ATORVASTATIN 10 MG TAB PO SCH (19:30)
[2021-02-04] MEDS: LEVOTHYROXINE SOD 0.05 MG TABLET PO SCH (07:20)
[2021-02-04] MEDS: LIDOCAINE 4% PATCH TOP PRN (07:21)
[2021-02-04] MEDS: levETIRAcetam 500 MG TAB PO SCH (08:49)
[2021-02-04] MEDS: PROPRANOLOL HCL 10 MG TAB PO SCH (08:49)
[2021-02-04] MEDS: GABAPENTIN 300 MG CAP PO SCH ×2 (08:49→13:11)
[2021-02-04] MEDS: FERROUS SULFATE 325 MG TAB PO SCH (08:50)
[2021-02-04] MEDS: VITAMIN D 5,000 UNIT CAP PO SCH (08:50)
[2021-02-04] MEDS: CYANOCOBALAMIN 1,000 MCG TAB PO SCH (08:50)
[2021-02-04] MEDS: ESCITALOPRAM 20 MG TAB PO SCH (08:50)
[2021-02-04] MEDS: ASPIRIN 81 MG CHEWABLE TABLET PO SCH (08:50)
[2021-02-04 08:52] VITALS: BP 112/60
[2021-02-04] MEDS: CHLORHEXIDINE 0.12% 473ML BOT MM SCH ×2 (08:52→12:39)
[2021-02-04] MEDS: ENOXAPARIN 40 MG/0.4 ML SQ SCH (08:52)
[2021-02-04] MEDS: OXYCODONE HCL 5 MG TAB PO PRN (12:38)
--- NOTE | 2021-02-04 17:07 | PN ---
Date of Progress Note: 02/03/2021 Subjective: The patient was seen this morning for followup. No new complaints or problems reported by her. Lying in bed, not in any distress. Objective: Vital signs: Reviewed. HEENT: Unremarkable. Lungs: Clear to auscultation. Heart: Sounds normal. Abdomen: Soft. Bowel sounds normal. No guarding, rigidity, tenderness, or distention. EXTREMITIES: No leg edema except left leg has trace leg edema. Impression: 1.Subdural hematoma. 2.Fracture, left patella. 3.Hypertension. 4.Anemia. 5.Compression fracture, T1 spine. Plan: We will continue current medical management. Continue physical therapy under guidance of Dr. Beckwith. The patient is scheduled to go home tomorrow. I will see her tomorrow morning for followu pJaqueline DUMONT/MODL Voice ID: [id number] Report ID: [id number]
--- NOTE | 2021-02-04 20:28 | DS ---
Date of Discharge: 02/04/2021 Disposition: Discharged to go home. Physical Examination: HEENT: Unremarkable. Lungs: Clear to auscultation. Heart: Sounds normal. Abdomen: Soft. Bowel sounds normal. No guarding, rigidity, tenderness, or distention. Extremities: No leg edema on the right leg. Left leg has trace edema unchanged. Discharge Medications And Instructions: 1.Continue all current medications except change Keppra 500 mg 2 times a day. 2.Follow up at my office per instruction. 3.Follow up with Dr. Beckwith in 2 to 3 weeks. Final Diagnoses: 1.Subdural hematoma. 2.Left patellar fracture, status post surgery. 3.Compression fracture of T1 spine. 4.Longitudinal ligament injury, C7-T1. 5.Fracture of nasal bone and maxillary sinus. 6.Anemia, unspecified. 7.Malnutrition, mild. 8.Benign essential tremor. 9.Hypothyroidism. 10.Hyperlipidemia. 11.Leg edema. 12.Osteoarthritis, multiple sites. 13.Depression. 14.Insomnia. Hospital Course: This is an 80-year-old female patient admitted to the hospital to rehab floor after she was transferred from [facility]. Please see dictated H and P for more informatio n. After the patient arrived at our hospital, her medications were continued, physical therapy was sophia mckay under guidance of Dr. Beckwith. DVT prophylaxis was given using Lovenox. She received iron sup plement therapy and her other medications continued. She received pain medication, oxycodone, which helped to control her pain very well and she really did not have any complaints of any pain control a s it was well controlled with current medication. No constipation problem reported. Her appetite wa s good. Malnutrition problems seem to improve on the serial blood work that we noted during this hos pitalization. The patient was determined stable for discharge from rehab point of view. Medically, she is stable for discharge. Dr. Beckwith has given her prescription for oxycodone, which she will t vilma 5 mg every 6 hours as needed for pain. JULIA/MODL Voice ID: [id number] Report ID: [id number]
--- NOTE | 2021-02-04 20:58 | DS ---
Date of Discharge: 02/04/2021 Laboratory Data: Upon admission, sodium 141, potassium 4, chloride 107, bicarb 30, BUN 24, creatinin e 0.93, glucose 91, albumin 2.9, pre-albumin 15.1. On 02/01/2021, sodium 140, potassium 4.4, chlorid e 110, bicarb 31, BUN 18, creatinine 0.95, glucose 99, albumin 2.9, pre-albumin 17.9. Her urinalysis was normal. COVID-19 test negative. Upon admission, white count was 5.7, hemoglobin 9.6, platelets 203. On 02/01/2021, white count was 5, hemoglobin 9.1, platelets 324. JULIA/MODL Voice ID: [id number] Report ID: [id number]
== END 2021-02-04 13:50 | disposition home health service (06) | DRG 949 ==
LOC: 5TH 15:05
PROVIDERS: ADMIT Psychiatry & Neurology Neurology with Special Qualifications in Child Neurology; ATTEND Psychiatry & Neurology Neurology with Special Qualifications in Child Neurology
DX: S06.5X9D Traumatic subdural hemorrhage with loss of consciousness of unspecified duration, subsequent encounter (principal); E46 Unspecified protein-calorie malnutrition; S82.001D Unspecified fracture of right patella, subsequent encounter for closed fracture with routine healing; S22.019D Unspecified fracture of first thoracic vertebra, subsequent encounter for fracture with routine healing; E03.9 Hypothyroidism, unspecified; D64.9 Anemia, unspecified; Z68.30 Body mass index [BMI] 30.0-30.9, adult; G25.0 Essential tremor; E78.5 Hyperlipidemia, unspecified; M19.90 Unspecified osteoarthritis, unspecified site; G47.00 Insomnia, unspecified; F32.9 Major depressive disorder, single episode, unspecified; R60.9 Edema, unspecified; Z20.822 Contact with and (suspected) exposure to COVID-19
CPT/HCPCS: 36415; 70450; 80048; 81003; 82040; 83735; 84134; 85025; 87086; 87088; 97110; 97112; 97116; 97161; 97530; 97542; J1650; U0003

== ENCOUNTER 2022-06-08 13:15 | Emergency (ER) | payer OTHER ==
--- OUTSIDE RECORDS SUMMARY | 2022-06-08 13:18 | XMS REPORT | Continuity of Care Document ---
:1940 Author Organization [facility] t Address [address] [place] [address] [address]. [address] [place] [address] Care Team Providers Name Role Phone ANANTHPRUDENCE Attending Clinician Unavailable GUILLERMO GARLAND Attending Clinician Unavailable ELIOT ANNE Attending Clinician Unavailable HILARIO QUINTEROS Attending Clinician Unavailable Martha Billings Attending Clinician MARTHA LORD Attending Clinician Unavailable Payers Payer Name Policy Type Policy Number Effective Date Expiration Date S ource MEDICARE PART A [id number] 2004 AND B 00:00:00 Problems Condition Condition Condition Status Onset Resolution Last Treating Co mments Source Name Details Category Date Date Treatment Clinician Date No known No known Disease Unive rs active active ity of problems problems [facility] Allergies, Adverse Reactions, Alerts Allergy Allergy Status Severity Reaction(s) Onset Inactive Treating Comm ents Source Name Type Date Date Clinician Codeine Propensi Active Other - See 2019-0 Un elvin ty to comments 6-12 ity of adverse 00:00: [place] reaction 00 Medical s Branch CODEINE DRUG Active Other-Cmnt 2019-0 Unive rs INGREDI 6-12 ity of 00:00: [place] 00 Medical Branch Social History Social Habit Start Date Stop Date Quantity Comments Source Sex Assigned At Uni [facility] Exposure to SARS-CoV-2 Not sure [facility] [place] (event) Medical Branch Smoking Status Start Date Stop Date Source Unknown if ever smoked [facility] Medications Ordered Filled Start Stop Current Ordering Indication Dosage Frequency Signature Comments Components Source Medication Medication Date Date Medication? Clinician (SIG) Name Name cephALEXin 2019-0 2020- No [id number] 500mg Take 1 Univers 500 mg 02-03 tablet by ity of tablet 00:00: 04:59 mouth 3 [place] 00 :00 (three) Medical times [place] daily for 7 days. Vital Signs Vital Name Observation Time Observation Value Comments Source Systolic blood 2020-02-05 03:12:54 128 mm[Hg] Univer sity of pressure [facility] Diastolic blood 2020-02-05 03:12:54 76 mm[Hg] Unive rsity of pressure [facility] Heart rate 2020-02-05 03:12:54 70 /min [facility] Body temperature 2020-02-05 03:12:54 36.44 Sridevi Univ [facility] Respiratory rate 2020-02-05 03:12:54 16 /min Univ ers[facility] of [facility] Oxygen saturation in 2020-02-05 03:12:54 96 /min University of Arterial blood by [facility] Pulse oximetry Branch Body weight 2020-02-05 01:37:00 86.183 kg [facility] BMI 2020-02-05 01:37:00 30.67 kg/m2 [facility] [place] [facility] Body height 2020-02-05 01:37:00 167.6 cm [facility] Systolic blood 2020-02-05 03:12:54 128 mm[Hg] Univer [facility] Diastolic blood 2020-02-05 03:12:54 76 mm[Hg] Unive rsity of pressure [facility] Heart rate 2020-02-05 03:12:54 70 /min [facility] [place] Medical [place] Body temperature 2020-02-05 03:12:54 36.44 Sridevi [facility] [place] [facility] Respiratory rate 2020-02-05 03:12:54 16 /min [facility] [place] [facility] Oxygen saturation in 2020-02-05 03:12:54 96 /min University of Arterial blood by [place] Reactivity jaya Pulse oximetry Branch Body weight 2020-02-05 01:37:00 86.183 kg [facility] [place] [facility] BMI 2020-02-05 01:37:00 30.67 kg/m2 [facility] Body height 2020-02-05 01:37:00 167.6 cm [facility] Procedures Procedure Date / Time Performed Performing Clinician Sour e ED LACERATION REPAIR 2020-02-05 02:07:00 Martha Lord [facility] Encounters Start End Encounter Admission Attending Care Care Encounter Source Date/Time Date/Time Type Type Clinicians Facility Department ID 2021-09-17 Outpatient [facility] [id number] [place] 15:10:57 Health 2021-09-10 Outpatient ANANTH, [facility] [id number] [place] 16:02:28 [facility] 2021-08-07 Outpatient [facility] [id number] [place] 14:39:42 Health 2021-06-11 Outpatient ANANTH, [facility] [id number] [place] 11:43:15 [facility] 2021-06-11 Outpatient ANANTH, [facility] [id number] [place] 10:57:58 [facility] 2021-06-04 Outpatient [facility] [id number] [place] 08:36:20 Health 2021-04-23 Outpatient [facility] [id number] [place] 16:09:13 Health 2021-04-23 Outpatient ANANTH, [facility] [id number] [place] 12:54:22 [facility] 2021-04-23 Outpatient ANANTH, [facility] [id number] [place] 11:36:11 [facility] 2021-04-23 Outpatient [facility] [id number] [place] 07:37:01 Health 2021-03-26 Outpatient ANANTH, [facility] [id number] [place] 12:06:43 [facility] 2021-03-19 Outpatient [facility] [id number] [place] 07:37:45 Health 2021-02-24 Outpatient GILL, [facility] [id number] [place] 01:04:30 GUILLERMO Health 2021-02-22 Outpatient [facility] [id number] [place] 14:37:24 Health 2021-02-21 Outpatient ANANTH, [facility] [id number] [place] 11:33:21 [facility] 2021-02-21 Outpatient ANANTH, [facility] [id number] [place] 10:06:24 [facility] 2021-02-16 Outpatient DAYANA, [facility] [id number] [place] 11:07:40 ELIOT Health 2021-02-16 Outpatient [facility] [id number] [place] 09:42:47 Health 2021-02-16 Outpatient NELI, [facility] [id number] [place] 09:27:46 [facility] 2021-02-06 Outpatient [facility] [id number] [place] 10:15:23 Health 2021-02-05 Outpatient ANANTH, [facility] [id number] [place] 08:19:05 [facility] 2021-02-02 Outpatient NELI, [facility] [id number] [place] 09:30:20 [facility] 2021-01-29 Outpatient ANANTH, [facility] [id number] [place] 15:29:25 [facility] 2020-02-04 2020-02-04 Emergency Martha Lord [facility] 1.2. [id number] 20:30:13 22:15:00 Martha Lord [id number] [place] [id number] [place] [id number] [facility] 2020-02-04 2020-02-04 Emergency Martha Lord [facility] 1.2. [id number] [facility] 20:30:13 22:15:00 Martha Lord [id number] ity [facility] [id number] [facility] [id number] [address] 2020-02-04 2020-02-04 Emergency X JEFFREY LORD ERT [id number] [facility] 20:30:13 20:30:13 [facility] Results Test Description Test Time Test Comments Results Result Comments Source SARS-COV2/RT-PCR ([facility]) 2019-12-29 00:48:00 Test Item Value Reference Range Interpretation Comme nts SARS-COV2/RT-PCR (test code = 4054935) Not Detected Not Detected, N egative SARS-COV-2 PERFORMING LAB (test code = [facility] [id number]) Negative results do not preclude SARS-CoV-2 infection and should not be used as the sole basis for patient management decisions. Negative results must be combined with clinical observations, patient history, and epidemiological information. A false negative result may occur if a specimen is improperly collected, transported or handled.The limit of detection for this assay is 250 copies/mL.This SARS CoV-2 test is a rapid, real-time RT-PCR test intended for the qualitative detection of nucleic acid from SARS-CoV-2 in a nasopharyngeal swab specimen collected from individuals suspected of COVID-19 by their healthcare provider.This test has not been Food and Drug Administration (FDA) cleared or approved and has been authorized by FDA under an Emergency Use Authorization (EUA). This EUA will be effective until the declaration that circumstances exist justifying the authorization of the emergency use of in vitro diagnostic tests for detection and/or diagnosis of COVID-19 is terminated under Section 564(b)(2) of the Act or the EUA is revoked under Section 564(g) of the Act.Fact Sheet for Healthcare Pro viders:https://www.[employer]al[employer]/Documents/Xpert%20Xpress%20SARS%20CoV-2/Fact%20Sh eets/302-8482%69TKRT-SNV-5%20HEALTHCARE%20PROVIDERS%20FACT%20SHEET.pdfFact Sheet for Healthcare Patients:https://www.[employer]/Documents/Xpert%20Xpress%20SARS%20CoV-2/Fact%20Sheets/3023801%20SARS-COV -2%20PATIENT%20FACT%20SHEET.pdfPerforming Laboratory:[facility] [place] [address]
[2022-06-08 13:54] LABS: Urine Blood Negative (Negative); Urine Glucose Negative (Negative); Urine Protein Negative (Negative); Urine Specific Gravity 1.015 (1.005-1.030)
[2022-06-08 14:41] LABS: Absolute Lymphocytes (CBC) 1.6 K/uL (0.7-4.9); Hematocrit 35.6 % (36.0-45.0); Lymphocytes % 20.1 % (15.3-44.8); MCV 100.2 fL (80-100); MPV 7.7 fL (7.6-11.3); RBC Red Blood Cell Count 3.56 M/uL (3.86-4.86)
[2022-06-08 14:56] LABS: Potassium 4.4 mmol/L (3.5-5.1); Troponin High Sensitivity 5.2 pg/mL (<58.9)
--- NOTE | 2022-06-08 15:05 | RAD REPORT ---
EXAM DESCRIPTION: Cari Single View06/08/2022 2:45 pm CLINICAL HISTORY: Chest pain COMPARISON: March 2022 FINDINGS: The lungs appear clear of acute infiltrate. The heart is normal size. Aorta is tortuous/ectatic IMPRESSION: No acute abnormalities displayed
--- NOTE | 2022-06-08 16:46 | RAD REPORT ---
EXAM DESCRIPTION: CT - Head Brain Wo Cont - 06/08/2022 4:38 pm CLINICAL HISTORY: Dizziness COMPARISON: 2000 TECHNIQUE: Computed axial tomography of the head was obtained. IV contrast was not requested. All CT scans are performed using dose optimization technique as appropriate and may include automated exposure control or mA/KV adjustment according to patient size. FINDINGS: An intracranial bleed is not seen . The ventricles are normal in caliber. No extra-axial fluid collection is noted. Mild to moderate low-density areas within periventricular, deep and subcortical white matter likely r epresent ischemic changes secondary to small vessel disease. Fluid within the sinuses/ mastoids is not seen. IMPRESSION: No acute intracranial abnormality is seen. If patient's symptoms persist MRI of the bra in would be recommended.
--- NOTE | 2022-06-08 16:53 | RAD REPORT ---
EXAM DESCRIPTION: Graham Angio06/08/2022 4:38 pm CLINICAL HISTORY: Dizziness COMPARISON: None TECHNIQUE: 50 cc Isovue 370 was administered intravenously. 3D MIP reconstruction performed All CT scans are performed using dose optimization technique as appropriate and may include automated exposure control or mA/KV adjustment according to patient size. FINDINGS: Mild plaque is present within common carotid, internal carotid and external carotid arteri es bilaterally The vertebral arteries are codominant. No significant stenosis. No dissection seen IMPRESSION: Mild plaque within the carotid arteries NASCET criteria used. Mild 0-49% stenosis Moderate 50-69% stenosis Severe 70-99% stenosis
--- NOTE | 2022-06-08 16:56 | RAD REPORT ---
EXAM DESCRIPTION: CTHead angio06/08/2022 4:38 pm CLINICAL HISTORY: Dizziness COMPARISON: None TECHNIQUE: CT angiogram of the head was obtained. 3D MIPS reconstruction performed. All CT scans are performed using dose optimization technique as appropriate and may include automated exposure control or mA/KV adjustment according to patient size. FINDINGS: The basilar, internal carotid, anterior cerebral, middle cerebral and posterior cerebral a rteries are normal caliber. An aneurysm is not seen. A significant stenosis is not noted. IMPRESSION: No acute abnormality is displayed
[2022-06-08] MEDS ORDERED: MECLIZINE HCL 12.5 MG TAB ONE (17:33)
--- NOTE | 2022-06-08 18:03 | EDPHYS ---
Physician Documentation [facility] Name: Elida Yañez Age: 81 yrs Sex: Female : 1940 Arrival Date: 06/08/2022 Time: 13:16 Bed 19 Private MD: Shana Yun C ED Physician Salomón Salmon HPI: 06/08 18:06 This 81 yrs old Female presents to ER via Wheelchair with complaints of Dizziness. kdr 18:53 The patient presents with dizziness. Onset: The symptoms/episode began/occurred kdr suddenly, just prior to arrival, this morning. Context: occurred at home, occurred while the patient was Patient states that she was taking a shower and washing her hair and fairly vigorously maneuvering her head and neck when she had acute onset of the dizziness.. Modifying factors: The symptoms are alleviated by nothing, the symptoms are aggravated by movement of head, standing up. Associated signs and symptoms: The patient has no apparent associated signs or symptoms. Severity of symptoms: At their worst the symptoms were mild moderate just prior to arrival, in the emergency department the symptoms are unchanged. Patient's baseline: Neuro: alert and fully oriented, Motor: no deficits, Ambulation: walks without assistance, Speech: normal. The patient has not experienced similar symptoms in the past. The patient has not recently seen a physician. Historical: - Allergies: 13:36 Codeine; hb 13:36 Primidone; hb - PMHx: 13:36 Arthritis; High Cholesterol; Hypothyroidism; hb - Immunization history:: Adult Immunizations up to date. - Social history:: Smoking status: Patient denies any tobacco usage or history of. ROS: 18:53 Constitutional: Negative for fever, chills, and weight loss, Eyes: Negative for injury, kdr pain, redness, and discharge, Neck: Negative for injury, pain, and swelling, Cardiovascular: Negative for chest pain, palpitations, and edema, Respiratory: Negative for shortness of breath, cough, wheezing, and pleuritic chest pain, Abdomen/GI: Negative for abdominal pain, nausea, vomiting, diarrhea, and constipation, Back: Negative for injury and pain, : Negative for injury, bleeding, discharge, and swelling, MS/Extremity: Negative for injury and deformity, Skin: Negative for injury, rash, and discoloration, Psych: Negative for depression, anxiety, suicide ideation, homicidal ideation, and hallucinations, Allergy/Immunology: Negative for hives, rash, and allergies, Endocrine: Negative for neck swelling, polydipsia, polyuria, polyphagia, and marked weight changes, Hematologic/Lymphatic: Negative for swollen nodes, abnormal bleeding, and unusual bruising. 18:53 Neuro: Positive for dizziness, Negative for altered mental status, gait disturbance, headache, hearing loss, seizure activity, speech changes, syncope, near syncope, tinnitus, tremor, visual changes, weakness, acute changes. Exam: 18:53 Constitutional: This is a well developed, well nourished patient who is awake, alert, kdr and in no acute distress. Head/Face: Normocephalic, atraumatic. Eyes: Pupils equal round and reactive to light, extra-ocular motions intact. Lids and lashes normal. Conjunctiva and sclera are non-icteric and not injected. Cornea within normal limits. Periorbital areas with no swelling, redness, or edema. Neck: Trachea midline, no thyromegaly or masses palpated, and no cervical lymphadenopathy. Supple, full range of motion without nuchal rigidity, or vertebral point tenderness. No Meningismus. Chest/axilla: Normal chest wall appearance and motion. Nontender with no deformity. No lesions are appreciated. Cardiovascular: Regular rate and rhythm with a normal S1 and S2. No gallops, murmurs, or rubs. Normal PMI, no JVD. No pulse deficits. Respiratory: Lungs have equal breath sounds bilaterally, clear to auscultation and percussion. No rales, rhonchi or wheezes noted. No increased work of breathing, no retractions or nasal flaring. Abdomen/GI: Soft, non-tender, with normal bowel sounds. No distension or tympany. No guarding or rebound. No evidence of tenderness throughout. Back: No spinal tenderness. No costovertebral tenderness. Full range of motion. Skin: Warm, dry with normal turgor. Normal color with no rashes, no lesions, and no evidence of cellulitis. MS/ Extremity: Pulses equal, no cyanosis. Neurovascular intact. Full, normal range of motion. Neuro: Awake and alert, GCS 15, oriented to person, place, time, and situation. Cranial nerves II-XII grossly intact. Motor strength 5/5 in all extremities. Sensory grossly intact. Cerebellar exam normal. Normal gait. Psych: Awake, alert, with orientation to person, place and time. Behavior, mood, and affect are within normal limits. Vital Signs: 13:32 BP 107 / 74; Pulse 88; Resp 16; Temp 98.1; Pulse Ox 100% on R/A; Weight 81.65 kg; hb Height 5 ft. 7 in. (170.18 cm); Pain 0/10; 14:28 BP 129 / 80; Pulse 72; Resp 20; Pulse Ox 97% on R/A; Pain 0/10; mb8 15:06 BP 128 / 75; Pulse 68; Resp 15; Pulse Ox 97% ; Pain 0/10; mb8 16:21 BP 134 / 76; Pulse 70; Resp 12; Pulse Ox 100% on R/A; mb8 17:15 BP 128 / 72; Pulse 77; Resp 16; Pulse Ox 97% on R/A; Pain 0/10; mb8 13:32 Body Mass Index 28.19 (81.65 kg, 170.18 cm) hb MDM: 18:02 Patient medically screened. kdr 18:03 Data reviewed: vital signs, nurses notes, lab test result(s), radiologic studies. kdr Counseling: I had a detailed discussion with the patient and/or guardian regarding: the historical points, exam findings, and any diagnostic results supporting the discharge/admit diagnosis, lab results, radiology results, the need for outpatient follow up. Physician consultation: A Court TRIVEDI was called at 18:03, was contacted at 18:04, regarding consult, patient's condition, outpatient follow-up, and will see patient in office, next week. 18:53 ED course: Patient improved with interventions given. Her dizziness worse was fairly kdr minor. She was able to get up to the bathroom and take care of her self with a little difficulty or exacerbation of her dizziness. 06/08 13:54 Order name: Urine Dipstick-Ancillary; Complete Time: 15:04 EDMS 06/08 14:20 Order name: Basic Metabolic Panel; Complete Time: 15:04 kdr 06/08 14:20 Order name: CBC with Diff; Complete Time: 15:04 kdr 06/08 14:20 Order name: Troponin HS; Complete Time: 15:04 kdr 06/08 14:20 Order name: XRAY Chest (1 view); Complete Time: 17:54 kdr 06/08 14:20 Order name: EKG; Complete Time: 14:21 kdr 06/08 16:06 Order name: Head angio; Complete Time: 17:54 EDMS 06/08 16:06 Order name: Neck Angio; Complete Time: 17:54 EDMS 06/08 16:10 Order name: Head Brain Wo Cont; Complete Time: 17:54 EDMS 06/08 14:04 Order name: Urine Dipstick-Ancillary (obtain specimen); Complete Time: 14:04 mb8 06/08 14:04 Order name: EKG - Nurse/Tech; Complete Time: 14:04 mb8 06/08 14:04 Order name: Cardiac monitoring; Complete Time: 14:04 mb8 06/08 14:20 Order name: IV Saline Lock; Complete Time: 14:27 kdr 06/08 14:20 Order name: Labs collected and sent; Complete Time: 14:27 kdr 06/08 14:20 Order name: O2 Per Protocol; Complete Time: 14:27 kdr 06/08 14:20 Order name: O2 Sat Monitoring; Complete Time: 14:27 kdr Administered Medications: 17:36 Drug: Meclizine 25 mg Route: PO; mb8 18:10 Follow up: Response: No adverse reaction mb8 Disposition Summary: 06/08/22 18:02 Discharge Ordered Location: Home kdr Problem: new kdr Symptoms: have improved kdr Condition: Stable kdr Diagnosis - Dizziness and giddiness kdr Followup: kdr - With: Shana Yun MD - When: 5 - 6 days - Reason: If symptoms return, Further diagnostic work-up, Recheck today's complaints, Continuance of care, Re-evaluation by your physician Discharge Instructions: - Discharge Summary Sheet kdr - Dizziness, [id number] kdr Forms: - Medication Reconciliation Form kdr - Thank You Letter kdr Prescriptions: - Meclizine 25 mg Oral Tablet - take 1 tablet by ORAL route every 8 hours As needed; 15 tablet; Refills: 0, kdr Product Selection Permitted Signatures: Dispatcher [employer] EDMS Salomón Salmon MD MD kdr Rosa Elena Rivas RN RN Jerod Burton RN RN mb8 Corrections: (The following items were deleted from the chart) 16:10 16:06 CT-HEAD/BRAIN W/O CONTRAST ordered. EDMS EDMS
--- NOTE | 2022-06-08 18:03 | ER ---
Nurse's Notes [facility] Name: Elida Yañez Age: 81 yrs Sex: Female : 1940 Arrival Date: 06/08/2022 Time: 13:16 Bed 19 Private MD: Shana Yun C Diagnosis: Dizziness and giddiness Presentation: 06/08 13:32 Chief complaint: Dizziness and mid back pain while standing in the shower 2 hours ago. hb Family reports SBP 110 supine, 90s sitting, 70s standing. Pt reports mild dizziness while sitting in wheelchair in triage. Coronavirus screen: At this time, the client does not indicate any symptoms associated with coronavirus-19. Ebola Screen: No symptoms or risks identified at this time. Initial Sepsis Screen: Does the patient meet any 2 criteria? No. Patient's initial sepsis screen is negative. Does the patient have a suspected source of infection? No. Patient's initial sepsis screen is negative. Risk Assessment: Do you want to hurt yourself or someone else? Patient reports no desire to harm self or others. Onset of symptoms was June 08, 2022. 13:32 Method Of Arrival: Wheelchair hb 13:32 Acuity: ELIAS 3 hb Triage Assessment: 14:11 General: Appears in no apparent distress. comfortable, Behavior is calm, cooperative, mb8 appropriate for age. Historical: - Allergies: 13:36 Codeine; hb 13:36 Primidone; hb - PMHx: 13:36 Arthritis; High Cholesterol; Hypothyroidism; hb - Immunization history:: Adult Immunizations up to date. - Social history:: Smoking status: Patient denies any tobacco usage or history of. Screenin:06 Abuse screen: Denies threats or abuse. Denies injuries from another. Nutritional mb8 screening: No deficits noted. Tuberculosis screening: No symptoms or risk factors identified. Fall Risk None identified. Assessment: 14:04 Pain: Complains of pain in chest Pain radiates to back Quality of pain is described as mb8 pressure. Cardiovascular: Chest pain is described as mild, quality is heaviness, pressure. Respiratory: Breath sounds are clear bilaterally. 15:00 Reassessment: Patient and/or family updated on plan of care and expected duration. Pain mb8 level reassessed. Patient is alert, oriented x 3, equal unlabored respirations, skin warm/dry/pink. Patient states feeling better. 16:22 Reassessment: Patient and/or family updated on plan of care and expected duration. Pain mb8 level reassessed. Patient is alert, oriented x 3, equal unlabored respirations, skin warm/dry/pink. 17:49 Reassessment: Patient and/or family updated on plan of care and expected duration. Pain mb8 level reassessed. Patient is alert, oriented x 3, equal unlabored respirations, skin warm/dry/pink. Vital Signs: 13:32 BP 107 / 74; Pulse 88; Resp 16; Temp 98.1; Pulse Ox 100% on R/A; Weight 81.65 kg; hb Height 5 ft. 7 in. (170.18 cm); Pain 0/10; 14:28 BP 129 / 80; Pulse 72; Resp 20; Pulse Ox 97% on R/A; Pain 0/10; mb8 15:06 BP 128 / 75; Pulse 68; Resp 15; Pulse Ox 97% ; Pain 0/10; mb8 16:21 BP 134 / 76; Pulse 70; Resp 12; Pulse Ox 100% on R/A; mb8 17:15 BP 128 / 72; Pulse 77; Resp 16; Pulse Ox 97% on R/A; Pain 0/10; mb8 13:32 Body Mass Index 28.19 (81.65 kg, 170.18 cm) hb Vitals: 16:21 Cardiac Rhythm Assessment Sinus rhythm. mb8 ED Course: 13:16 Patient arrived in ED. am2 13:16 Shana Yun MD is Private Physician. am2 13:29 Salomón Salmon MD is Attending Physician. kdr 13:36 Triage completed. hb 13:36 Arm band placed on. hb 14:04 Jerod Burton, ANANT is Primary Nurse. mb8 14:06 Patient has correct armband on for positive identification. Placed in gown. Bed in low mb8 position. Call light in reach. Side rails up X2. Client placed on continuous cardiac and pulse oximetry monitoring. NIBP monitoring applied. engine monitor on. 14:06 No provider procedures requiring assistance completed. mb8 14:22 Inserted saline lock: 18 gauge in right antecubital area, using aseptic technique. mb8 Blood collected. 14:27 XRAY Chest (1 view) Sent. mb8 14:47 XRAY Chest (1 view) In Process Unspecified. EDMS 16:39 Head angio In Process Unspecified. EDMS 16:39 Neck Angio In Process Unspecified. EDMS 16:40 Head Brain Wo Cont In Process Unspecified. EDMS 18:01 Shana Yun MD is Referral Physician. kdr 18:20 IV discontinued, intact, bleeding controlled, No redness/swelling at site. Pressure mb8 dressing applied. Administered Medications: 17:36 Drug: Meclizine 25 mg Route: PO; mb8 18:10 Follow up: Response: No adverse reaction mb8 Medication: 14:06 VIS not applicable for this client. mb8 Outcome: 18:02 Discharge ordered by MD. kdr 18:20 Discharged to home ambulatory, with family. mb8 18:20 Condition: stable 18:20 Discharge instructions given to patient, family, Instructed on discharge instructions, follow up and referral plans. medication usage, Demonstrated understanding of instructions, follow-up care, medications, Prescriptions given X 1. 18:22 Patient left the ED. mb8 Signatures: Dispatcher [employer] EDMT Salomón Salmon MD MD kdr Rosa Elena Rivas, RN RN Mariajose Coburn Jerod Galindo, RN RN mb8
[2022-06-08 18:32] VITALS: TEMP 98.1
[2022-06-08 18:50] VITALS: BP 128/72; O2SAT 97
--- NOTE | 2022-06-10 16:11 | EKG ---
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
== END 2022-06-08 18:22 | disposition home or self-care (01) ==
LOC: ER 13:15
DX: R42 Dizziness and giddiness (principal); Z88.6 Allergy status to analgesic agent; E03.9 Hypothyroidism, unspecified; E78.00 Pure hypercholesterolemia, unspecified
CPT/HCPCS: 93005; 85025; 80048; 36415; 81003; 84484; 70450; 70496; 70498; 71045; 99284; Q9967; J8597

== ENCOUNTER 2023-07-04 15:25 | Emergency (ER) | payer OTHER ==
--- OUTSIDE RECORDS SUMMARY | 2023-07-04 15:29 | XMS REPORT | Continuity of Care Document ---
:1940 Author Organization [facility] t Address [address] [place] [address] [address] [place] [address] Care Team Providers Name Role Phone Akbar Yun Attending Clinician Unavailable PRUDENCE WADSWORTH Attending Clinician Unavailable GUILLERMO GARLAND Attending Clinician Unavailable ELIOT ANNE Attending Clinician Unavailable HILARIO QUINTEROS Attending Clinician Unavailable Martha Billings Attending Clinician MARTHA LORD Attending Clinician Unavailable Payers Payer Name Policy Type Policy Number Effective Date Expiration Date S [facility] MEDICARE PART A [id number] 2004 AND B 00:00:00 Problems Condition Condition Condition Status Onset Resolution Last Treating Co mments Source Name Details Category Date Date Treatment Clinician Date No known No known Disease Unive rs active active ity of problems problems [facility] [place] [place] Allergies, Adverse Reactions, Alerts Allergy Allergy Status Severity Reaction(s) Onset Inactive Treating Comm ents Source Name Type Date Date Clinician Codeine Propensi Active Other - See 0 Un elvin ty to comments 612 ity of adverse 00:00: [place] reaction 00 Medical s Branch CODEINE DRUG Active Other-Cmnt 2019-0 Unive rs INGREDI 6-12 ity of 00:00: [place] 00 Medical Branch Social History Social Habit Start Date Stop Date Quantity Comments Source Sex Assigned At Uni versity of [facility] [place] [place] Exposure to SARS-CoV-2 Not sure [facility] [place] (event) Medical Branch Smoking Status Start Date Stop Date Source Unknown if ever smoked [facility] [place] [place] Medications Ordered Filled Start Stop Current Ordering Indication Dosage Frequency Signature Comments Components Source Medication Medication Date Date Medication? Clinician (SIG) Name Name cephALEXin 2020-0 2020- No [id number] 500mg Take 1 Univers 500 mg 02-03 tablet by ity of tablet 00:00: 04:59 mouth 3 [place] 00 :00 (three) Medical times Branch daily for 7 days. Vital Signs Vital Name Observation Time Observation Value Comments Source Systolic blood 2020-02-05 03:12:54 128 mm[Hg] Univer sity of pressure [facility] [place] [place] Diastolic blood 2020-02-05 03:12:54 76 mm[Hg] Unive rsity of pressure [facility] [place] [place] Heart rate 2020-02-05 03:12:54 70 /min [facility] ty of [facility] [place] Body temperature 2020-02-05 03:12:54 36.44 Sridevi Univ ersity of [facility] [place] [place] Respiratory rate 2020-02-05 03:12:54 16 /min Univ ersity of [facility] [place] [place] Oxygen saturation in 2020-02-05 03:12:54 96 /min University of Arterial blood by [place] rimidi jaya Pulse oximetry Branch Body weight 2020-02-05 01:37:00 86.183 kg Universi ty of [facility] [place] [place] BMI 2020-02-05 01:37:00 30.67 kg/m2 [facility] [place] [facility] [place] Body height 2020-02-05 01:37:00 167.6 cm Universi ty of [facility] [place] Branch Systolic blood 2020-02-05 03:12:54 128 mm[Hg] Univer sity of [facility] Diastolic blood 2020-02-05 03:12:54 76 mm[Hg] Unive rsity of [facility] Heart rate 2020-02-05 03:12:54 70 /min [facility]i ty of [facility] [place] [place] Body temperature 2020-02-05 03:12:54 36.44 Sridevi Univ ersity of [facility] [place] Branch Respiratory rate 2020-02-05 03:12:54 16 /min [facility] [place] [facility] Oxygen saturation in 2020-02-05 03:12:54 96 /min University of Arterial blood by [place] rimidi jaya Pulse oximetry Branch Body weight 2020-02-05 01:37:00 86.183 kg [facility] [place] [facility] [place] BMI 2020-02-05 01:37:00 30.67 kg/m2 Universi ty of [facility] [place] [place] Body height 2020-02-05 01:37:00 167.6 cm Universi ty of [facility] [place] [place] Procedures Procedure Date / Time Performed Performing Clinician Sourc e ED LACERATION REPAIR 2020-02-05 02:07:00 Martha Lord [facility] Encounters Start End Encounter Admission Attending Care Care Encounter Source Date/Time Date/Time Type Type Clinicians Facility Department ID 2022-09-[address] STBINH STLMLC [id number] Common 10:22:04 Akbar [id number] [facility] 2022-08-[address] [facility] [id number] [place] 13:38:49 [id number] Health 2021-09-[address] [facility] [id number] [place] 15:10:57 Health 2021-09-10 Outpatient ANANTH, [facility] [id number] [place] 16:02:28 [facility] 2021-08-[address] [facility] [id number] [place] 14:39:42 Health 2021-06-11 Outpatient ANANTH, [facility] [id number] [place] 11:43:15 [facility] 2021-06-11 Outpatient ANANTH, [facility] [id number] [place] 10:57:58 [facility] 2021-06-[address] [facility] [id number] [place] 08:36:20 Health 2021-04-[address] [facility] [id number] [place] 16:09:13 Health 2021-04-23 Outpatient ANANTH, [facility] [id number] [place] 12:54:22 [facility] 2021-04-23 Outpatient ANANTH, [facility] [id number] [place] 11:36:11 [facility] 2021-04-[address] [facility] [id number] [place] 07:37:01 Health 2021-03-26 Outpatient ANANTH, [facility] [id number] [place] 12:06:43 [facility] 2021-03-[address] [facility] [id number] [place] 07:37:45 Health 2021-02-24 Outpatient GILL, [facility] [id number] [place] 01:04:30 GUILLERMO Health 2021-02-[address] [facility] [id number] [place] 14:37:24 Health 2021-02-21 Outpatient WADSWORTH, [facility] [id number] [place] 11:33:21 [facility] 2021-02-21 Outpatient WADSWORTH, [facility] [id number] [place] [facility] DAYANA, [facility] [id number] [place] 11:07:40 [facility] 2021-02-[address] [facility] [id number] [place] 09:42:47 Health 2021-02-16 Outpatient NELI, [facility] [id number] [place] 09:27:46 [facility] 2021-02-[address] [facility] [id number] [place] 10:15:23 Health 2021-02-05 Outpatient WADSWORTH, [facility] [id number] [place] 08:19:05 PRUDENCE [facility] 2021-02-02 Outpatient NELI, [facility] [id number] [place] 09:30:20 [facility] 2021-01-29 Outpatient ANANTH, [facility] [id number] [place] 15:29:25 [facility] 2020-02-04 2020-02-04 Emergency Eliseo Henrybarbara Penny [facility] 1.2. [id number] [facility] 20:30:13 22:15:00 Martha Lord [id number] ity [facility] [id number] [facility] [id number] [address] 2020-02-04 2020-02-04 Emergency Isabel Lordtani Hemalatha [facility] 1.2. [id number] 20:30:13 22:15:00 EliseoHenrybarbara Hemalatha [place] [id number] [place] [id number] [place] [id number] [facility] 2020-02-04 2020-02-04 Emergency X ELISEO SCOSMAN ERT [id number] [facility] 20:30:13 20:30:13 [facility] Results This patient has no known results.
--- NOTE | 2023-07-04 16:38 | RAD REPORT ---
EXAM DESCRIPTION: CT - Thorax Wo Con - 07/04/2023 3:57 pm CLINICAL HISTORY: TRAUMA COMPARISON: Thorax Wo Con dated 04/16/2022; Thorax Wo Con dated 04/03/2021 TECHNIQUE: Axial thin cut images of the chest were obtained without IV contrast. Multiplanar reforma ts were generated and reviewed. All CT scans are performed using dose optimization technique as appropriate and may include automated exposure control or mA/KV adjustment according to patient size. FINDINGS: No mass or infiltrate in the lung parenchyma. Subpleural left costophrenic angle [address] nodule is stable. No pleural thickening or pleural effusion. No pneumothorax. No abnormal mediastinal or hilar masses or lymphadenopathy seen. No significant aortic or pulmonary a rtery findings. Assessment is limited in the absence of IV contrast. No chest wall mass or abnormal axillary lymphadenopathy. Evaluation of the solid abdominal structures reveals no suspicious findings. No acute osseous abnormality. IMPRESSION: No acute process within the chest.
--- NOTE | 2023-07-04 16:49 | RAD REPORT ---
EXAM DESCRIPTION: CT - CTHCSPWOC - 07/04/2023 3:52 pm CLINICAL HISTORY: TRAUMA COMPARISON: Neck Angio dated 06/08/2022; Head angio dated 06/08/2022; Head Brain Wo Cont dated 06/08 TECHNIQUE: Axial thin cut noncontrast CT images of the head were obtained. Axial thin cut noncontrast CT images of the cervical spine were obtained. Multiplanar reformatted images were generated and reviewed. All CT scans are performed using dose optimization technique as appropriate and may include automated exposure control or mA/KV adjustment according to patient size. FINDINGS: CT HEAD WITHOUT CONTRAST: No acute hemorrhage, hydrocephalus or extra-axial collection is identified.No areas of brain edema or midline shift. The paranasal sinuses and mastoids are clear.The calvarium is intact. CT CERVICAL SPINE WITHOUT CONTRAST: No fracture or subluxation.Stable spondylotic changes, with up to 4 millimeter anterolisthesis of C7 over T1. Findings are overall stable, with up to moderate neural foraminal narrowing on the left at C 5-6 and C6-7, with stable degree of canal stenosis at C5-6 and C7-T1.No prevertebral soft tissues swe lling is identified. IMPRESSION: No acute traumatic intracranial or cervical spine findings. Stable degenerative changes of the cervical spine as above.
--- NOTE | 2023-07-04 17:09 | EDPHYS ---
Physician Documentation [facility] Name: Elida Yañez Age: 82 yrs Sex: Female : 1940 Arrival Date: 07/04/2023 Time: 15:25 Bed 17 Private MD: ED Physician Rodrigo Macias HPI: 07/04 15:40 This 82 yrs old Female presents to ER via Unassigned with complaints of Fall Injury, sp3 Head Bruising. 15:40 82-year-old female with history of hyperlipidemia, essential tremor now presents to the 3 ED with mechanical ground-level fall secondary to tripping with injury to her left elbow and left forehead. She also endorses some mild pain on the left lateral chest. No loss of consciousness reported and patient was with her caregiver during the incident. Patient has no other complaints and the left elbow is mainly skin with no pain to the elbow itself. She denies neck pain, shortness of breath, back pain, abdominal pain, hip pain, extremity pain other than the left elbow skin, or any other signs or symptoms on ROS at this time. She is on an 81 mg ASA daily and denies any other antiplatelet or anticoagulants.. Historical: - Allergies: 15:33 Codeine; ll1 15:33 Primidone; ll1 - PMHx: 15:33 Arthritis; High Cholesterol; Hypothyroidism; ll1 - Immunization history:: Adult Immunizations up to date. - Social history:: Smoking status: Patient denies any tobacco usage or history of. ROS: 15:42 Constitutional: Negative for fever, chills, and weight loss, Eyes: Negative for injury, sp3 pain, redness, and discharge, Neck: Negative for injury, pain, and swelling, Cardiovascular: Negative for chest pain, palpitations, and edema, Respiratory: Negative for shortness of breath, cough, wheezing, and pleuritic chest pain, Abdomen/GI: Negative for abdominal pain, nausea, vomiting, diarrhea, and constipation, Back: Negative for injury and pain, Skin: Negative for injury, rash, and discoloration, Psych: Negative for depression, anxiety, suicide ideation, homicidal ideation, and hallucinations, Allergy/Immunology: Negative for hives, rash, and allergies, Endocrine: Negative for neck swelling, polydipsia, polyuria, polyphagia, and marked weight changes, Exam: 15:42 Constitutional: This is a well developed, well nourished patient who is awake, alert, sp3 and in no acute distress. Eyes: Pupils equal round and reactive to light, extra-ocular motions intact. Lids and lashes normal. Conjunctiva and sclera are non-icteric and not injected. Cornea within normal limits. Periorbital areas with no swelling, redness, or edema. ENT: Nares patent. No nasal discharge, no septal abnormalities noted. External auditory canals are clear. Oropharynx with no redness, swelling, or masses, exudates, or evidence of obstruction, uvula midline. Mucous membranes moist. Neck: Trachea midline, no thyromegaly or masses palpated, and no cervical lymphadenopathy. Supple, full range of motion without nuchal rigidity, or vertebral point tenderness. No Meningismus. Cardiovascular: Regular rate and rhythm with a normal S1 and S2. No gallops, murmurs, or rubs. Normal PMI, no JVD. No pulse deficits. Respiratory: Lungs have equal breath sounds bilaterally, clear to auscultation and percussion. No rales, rhonchi or wheezes noted. No increased work of breathing, no retractions or nasal flaring. Abdomen/GI: Soft, non-tender, with normal bowel sounds. No distension or tympany. No guarding or rebound. No evidence of tenderness throughout. Back: No spinal tenderness. No costovertebral tenderness. Full range of motion. MS/ Extremity: Pulses equal, no cyanosis. Neurovascular intact. Full, normal range of motion. Neuro: Awake and alert, GCS 15, oriented to person, place, time, and situation. Cranial nerves II-XII grossly intact. Motor strength 5/5 in all extremities. Sensory grossly intact. Cerebellar exam normal. Normal gait. Psych: Awake, alert, with orientation to person, place and time. Behavior, mood, and affect are within normal limits. 15:42 Head/face: 2 cm x 3 cm area of ecchymoses and swelling noted on the left forehead superior portion at the hairline. No bleeding noted.. 15:42 Chest/axilla: Very mild pain on lateral ribs on the left side.. 15:42 Skin: Skin abrasions and tears on the left lateral elbow without maladies. No joint effusion noted and full range of motion of the elbows preserved. Distal neurovascular exam is also normal.. Vital Signs: 15:42 BP 130 / 73; Pulse 72; Resp 16; Temp 98.4; Pulse Ox 100% on R/A; Weight 75.75 kg; iw Height 5 ft. 7 in. ; Pain 2/10; 17:22 BP 120 / 83; Pulse 70; Resp 16; Pulse Ox 100% on R/A; ll1 15:42 Body Mass Index 26.16 (75.75 kg, 170.18 cm) iw 15:42 Pain Scale: Adult iw MDM: 15:33 Patient medically screened. sp3 15:45 Data reviewed: vital signs, nurses notes, radiologic studies. ED course: 82-year-old sp3 female with mechanical ground-level fall. We will evaluate with CT scan of the head, C-spine and chest. No other imaging indicated. Disposition pending work-up and patient course. Likely soft tissue injuries only.. 07/04 15:38 Order name: CT Head C Spine; Complete Time: 16:55 sp3 07/04 15:42 Order name: CT Chest Wo Con; Complete Time: 16:55 sp3 Administered Medications: No medications were administered Disposition Summary: 07/04/23 17:08 Discharge Ordered Notes: Location: Home sp3 Condition: Stable sp3 Diagnosis - Forehead contusion, closed head injury, rib contusion sp3 Followup: sp3 - With: Private Physician - When: Upon discharge from the Emergency Department - Reason: Continuance of care Discharge Instructions: - Discharge Summary Sheet sp3 - Head Injury, Adult sp3 Forms: - Medication Reconciliation Form sp3 - Thank You Letter sp3 - Antibiotic Education sp3 - Prescription Opioid Use sp3 - Patient Portal Instructions sp3 - Leadership Thank You Letter sp3 Prescriptions: - Tramadol 50 mg Oral Tablet - take 1 tablet ORAL route every 8 hours as needed; 12 tablet; Refills: 0, sp3 Product Selection Permitted Signatures: Dispatcher [employer] EDMary Grace Gudino RN RN iw Jonathan García RN RN ll1 Rodrigo Macias MD MD sp3 Corrections: (The following items were deleted from the chart) 15:42 15:40 82-year-old female with history of hyperlipidemia, essential tremor now presents sp3 to the ED with mechanical ground-level fall secondary to tripping with injury to her left elbow and left forehead. No loss of consciousness reported and patient was with her caregiver during the incident. Patient has no other complaints and the left elbow is mainly skin with no pain to the elbow itself. She denies neck pain, chest pain, shortness of breath, back pain, abdominal pain, hip pain, extremity pain other than the left elbow skin, or any other signs or symptoms on ROS at this time. She is on an 81 mg ASA daily and denies any other antiplatelet or anticoagulants.. sp3
--- NOTE | 2023-07-04 17:09 | ER ---
Nurse's Notes [facility] Name: Elida Yañez Age: 82 yrs Sex: Female : 1940 Arrival Date: 07/04/2023 Time: 15:25 Bed 17 Private MD: Diagnosis: Forehead contusion, closed head injury, rib contusion Presentation: 07/04 15:41 Acuity: ELIAS 4 iw 15:41 Chief complaint: Patient states: tripped and fell in garage today , hit her head , no iw LOC, not on blood thinners , also has abrasion to left arm. Coronavirus screen: At this time, the client does not indicate any symptoms associated with coronavirus-19. Ebola Screen: Patient negative for fever greater than or equal to 101.5 degrees Fahrenheit, and additional compatible Ebola Virus Disease symptoms Patient denies exposure to infectious person. Patient denies travel to an Ebola-affected area in the 21 days before illness onset. No symptoms or risks identified at this time. Initial Sepsis Screen: Does the patient meet any 2 criteria? No. Patient's initial sepsis screen is negative. Does the patient have a suspected source of infection? No. Patient's initial sepsis screen is negative. Risk Assessment: Do you want to hurt yourself or someone else? Patient reports no desire to harm self or others. Onset of symptoms was July 04, 2023. 15:41 Method Of Arrival: Ambulatory iw Triage Assessment: 17:23 General: Appears in no apparent distress. Behavior is calm, cooperative, appropriate ll1 for age. Pain: Denies pain. Historical: - Allergies: 15:33 Codeine; ll1 15:33 Primidone; ll1 - PMHx: 15:33 Arthritis; High Cholesterol; Hypothyroidism; ll1 - Immunization history:: Adult Immunizations up to date. - Social history:: Smoking status: Patient denies any tobacco usage or history of. Screenin:43 [facility] ED Fall Risk Assessment (Adult) Score/Fall Risk Level 3 or more points = High ll1 Risk Oriented to surroundings, Maintained a safe environment, Educated pt \T\ family on fall prevention, incl call for assistance when getting out of bed, Hourly rounding (assess needs \T\ fall precautionary measures) done, Used ambulatory aids as needed (educated on \T\ assisted with), Implemented a Fall Risk Plan of Care, Apply high fall risk patient identification: yellow non skid footwear/ fall signage, Remained with patient while ambulating. Abuse screen: Denies threats or abuse. Nutritional screening: No deficits noted. Tuberculosis screening: No symptoms or risk factors identified. Assessment: 15:43 Reassessment: No changes from previously documented assessment. Patient and/or family ll1 updated on plan of care and expected duration. Pain level reassessed. Patient is alert, oriented x 3, equal unlabored respirations, skin warm/dry/pink. 16:00 Reassessment: No changes from previously documented assessment. Patient and/or family ll1 updated on plan of care and expected duration. Pain level reassessed. Patient is alert, oriented x 3, equal unlabored respirations, skin warm/dry/pink. 17:23 Reassessment: No changes from previously documented assessment. Patient and/or family ll1 updated on plan of care and expected duration. Pain level reassessed. Patient is alert, oriented x 3, equal unlabored respirations, skin warm/dry/pink. Vital Signs: 15:42 BP 130 / 73; Pulse 72; Resp 16; Temp 98.4; Pulse Ox 100% on R/A; Weight 75.75 kg; iw Height 5 ft. 7 in. ; Pain 2/10; 17:22 BP 120 / 83; Pulse 70; Resp 16; Pulse Ox 100% on R/A; ll1 15:42 Body Mass Index 26.16 (75.75 kg, 170.18 cm) iw 15:42 Pain Scale: Adult iw ED Course: 15:28 Patient arrived in ED. mg5 15:30 Rodrigo Macias MD is Attending Physician. sp3 15:33 Jonathan García, ANANT is Primary Nurse. ll1 15:33 Arm band placed on Patient placed in an exam room, on a stretcher. ll1 15:41 Triage completed. iw 15:44 Patient has correct armband on for positive identification. Bed in low position. Call ll1 light in reach. Cardiac monitoring not applicable on this patient. 15:54 CT Head C Spine In Process Unspecified. EDMS 15:59 CT Chest Wo Con In Process Unspecified. EDMS 17:23 Provided Education on: n/a. ll1 17:23 No provider procedures requiring assistance completed. Patient did not have IV access ll1 during this emergency room visit. Administered Medications: No medications were administered Medication: 15:44 VIS not applicable for this client. ll1 Outcome: 17:08 Discharge ordered by . sp3 17:23 Discharged to home ambulatory, ll1 17:23 Condition: stable 17:23 Discharge instructions given to patient, family, Instructed on discharge instructions, follow up and referral plans. no drinking with medication, no driving heavy equipment, medication usage, Demonstrated understanding of instructions, follow-up care, medications, Prescriptions given X 1, 17:25 Patient left the ED. ll1 Signatures: Dispatcher [employer] EDMary Grace Gudino RN Jonathan Acosta RN RN ll1 Rodrigo Macias MD MD sp3 Arleen Cristina 5
[2023-07-04 17:38] VITALS: TEMP 98.4; O2SAT 100
[2023-07-04 17:39] VITALS: BP 120/83
== END 2023-07-04 17:25 | disposition home or self-care (01) ==
LOC: ER 15:25
DX: S00.83XA Contusion of other part of head, initial encounter (principal); S20.212A Contusion of left front wall of thorax, initial encounter; E03.9 Hypothyroidism, unspecified; E78.00 Pure hypercholesterolemia, unspecified; Z88.5 Allergy status to narcotic agent; Z88.8 Allergy status to other drugs, medicaments and biological substances
CPT/HCPCS: 70450; 71250; 72125; 99283